=== PATIENT | female | born 1950 | race Caucasian/White ===

== ENCOUNTER 2017-06-18 22:57 | Inpatient (IN) ==
[2017-06-19] MEDS ORDERED: MORPHINE 2 MG/1 ML SYRINGE IV PRN (02:12)
[2017-06-19] MEDS ORDERED: DEXTROSE 50% 25 GM/50 ML VIAL IV PRN (02:12)
[2017-06-19] MEDS ORDERED: GLUCAGON 1 MG VIAL IM PRN (02:12)
[2017-06-19] MEDS ORDERED: traZODone 50 MG TABLET PO PRN (02:12)
[2017-06-19] MEDS ORDERED: ONDANSETRON 4 MG/2 ML VIAL IV PRN (02:12)
[2017-06-19] MEDS ORDERED: SODIUM CHLORIDE 0.9% 500 ML IV ONE (02:22)
[2017-06-19] MEDS ORDERED: ALBUTEROL/IPRATROPIUM 3 ML NEB RESP TX PRN (02:22)
[2017-06-19] MEDS ORDERED: SODIUM CHLORIDE 0.9% 1,000 ML IV SCH (02:30)
[2017-06-19] MEDS: ACETAMINOPHEN 325 MG TABLET PO PRN (03:21)
[2017-06-19] MEDS: methylPREDNISolone SOD SUC 40 MG/1 ML VIAL IV SCH ×4 (03:21→23:53)
[2017-06-19] MEDS: LEVOFLOXACIN INJ 750 MG in PREMIX 1 EACH IV SCH (04:41)
[2017-06-19] MEDS ORDERED: guaiFENesin 200 MG/10 ML UDCUP PO PRN (04:49)
[2017-06-19 05:07] LABS: Basophils % 0.1 % (0.0-0.8); Hematocrit 43.9 VOL% (35.7-47.0); Hemoglobin 14.9 GM/DL (12.0-16.0); Immature Granulocytes % 0.4 %; Immature Granulocytes Absolute 0.03 #; Lymphocytes # 0.5 10*3/uL (1.4-4.0); Lymphocytes % 7.2 % (21.3-54.2); Mean Corpuscular HGB Conc 33.9 GM/DL (32-36); Mean Corpuscular Hemoglobin 27 PG (27-34); Mean Corpuscular Volume 79.7 FL (87-102); Mean Platelet Volume 10.1 FL (9.6-12.0); Monocytes # 0.1 10*3/uL (0.11-0.8); Monocytes % 1.3 % (1.7-12.7); Neutrophils # 6.3 10*3/uL (1.4-7.4); Platelet Count 228 T/CUMM (130-400); Red Blood Count 5.51 MC/CUMM (3.8-5.5)
[2017-06-19 05:37] LABS: Alanine Aminotransferase 23 U/L (13-56); Albumin 3.2 G/DL (3.4-5.0); Alkaline Phosphatase 116 U/L (45-117); Aspartate Amino Transferase 20 U/L (0-37); Bilirubin,Total < 0.39 MG/DL (0.2-1.0); Blood Urea Nitrogen 8 MG/DL (7-18); Calcium 8.1 MG/DL (8.5-10.1); Glucose 387 MG/DL (74-106); Osmolality,Calculated 279.4 MOS/KG (273-304); Potassium 4.1 MMOL/L (3.5-5.1); Sodium 133 MMOL/L (136-145); Total Protein 6.5 G/DL (6.4-8.3)
[2017-06-19 05:38] LABS: Band Neutrophils 1 % (0-10); Lymphocytes 5 % (20-55); Platelet Estimate Normal; Segmented Neutrophils 93 % (50-85); Total Cells Counted 100
[2017-06-19] MEDS: ALBUTEROL/IPRATROPIUM 3 ML NEB RESP TX SCH ×3 (07:49→19:11)
[2017-06-19] MEDS ORDERED: PANTOPRAZOLE 40 MG TABLET PO SCH (09:00)
[2017-06-19] MEDS: DOCUSATE SODIUM 100 MG CAPSULE PO SCH ×2 (09:36→22:44)
[2017-06-19] MEDS: INSULIN REGULAR 100 UNIT/ML SUBCUT SCH ×4 (09:36→22:45)
[2017-06-19] MEDS: ENOXAPARIN 40 MG/0.4 ML SYRINGE SUBCUT SCH (09:36)
[2017-06-19] MEDS ORDERED: ALBUTEROL INH PRN (11:13)
[2017-06-19] MEDS: CITALOPRAM 20 MG TABLET PO SCH (13:47)
[2017-06-19] MEDS: risperiDONE 1 MG TABLET PO SCH ×2 (13:47→22:42)
[2017-06-19] MEDS: FLUTICASONE 50 MCG NASAL SPRAY 16 GM BOTTLE BOTH NARES SCH (13:47)
[2017-06-19] MEDS: GABAPENTIN 400 MG CAPSULE PO SCH ×3 (13:47→23:57)
[2017-06-19] MEDS: sitaGLIPtin 100 MG TABLET PO SCH (13:48)
[2017-06-19] MEDS: LORATADINE 10 MG TABLET PO SCH (13:48)
[2017-06-19] MEDS: HydrOXYzine PAMOATE 50 MG CAPSULE PO SCH ×2 (14:45→22:42)
[2017-06-19] MEDS ORDERED: NITROGLYCERIN SL 0.4 MG TABLET SL PRN (14:55)
[2017-06-19] MEDS: METOPROLOL SUCCINATE XL 100 MG TABLET PO SCH (15:40)
[2017-06-19] MEDS ORDERED: KETOROLAC 15 MG/1 ML VIAL IV ONE (17:23)
[2017-06-19] MEDS: LISINOPRIL 5 MG TABLET PO SCH (17:40)
[2017-06-19] MEDS: TEMAZEPAM 15 MG CAPSULE PO SCH (22:42)
[2017-06-19] MEDS: PANTOPRAZOLE 40 MG TABLET PO SCH (22:43)
[2017-06-19] MEDS: PRAVASTATIN 40 MG TABLET PO SCH (22:43)
[2017-06-19] MEDS: COLESTIPOL 1 GM TABLET PO SCH (22:43)
[2017-06-19] MEDS: TRIHEXYPHENIDYL 5 MG PO SCH (22:44)
[2017-06-20] MEDS: ALBUTEROL/IPRATROPIUM 3 ML NEB RESP TX SCH ×4 (02:45→19:16)
[2017-06-20 05:23] LABS: Basophils % 0.2 % (0.0-0.8); Immature Granulocytes % 0.6 %; Lymphocytes # 0.6 10*3/uL (1.4-4.0); Lymphocytes % 3.5 % (21.3-54.2); Mean Corpuscular HGB Conc 34.1 GM/DL (32-36); Mean Corpuscular Hemoglobin 27 PG (27-34); Mean Corpuscular Volume 78.9 FL (87-102); Monocytes # 1.3 10*3/uL (0.11-0.8); Monocytes % 7.1 % (1.7-12.7); Neutrophils # 15.8 10*3/uL (1.4-7.4); Neutrophils % 88.6 % (38.7-73.9); Platelet Count 230 T/CUMM (130-400); Red Blood Count 5.58 MC/CUMM (3.8-5.5); White Blood Count 17.8 T/CUMM (4-12)
[2017-06-20 05:48] LABS: Blood Urea Nitrogen 7 MG/DL (7-18); Calcium 8.8 MG/DL (8.5-10.1); Glucose 159 MG/DL (74-106); Osmolality,Calculated 268.2 MOS/KG (273-304); Potassium 3.9 MMOL/L (3.5-5.1); Sodium 134 MMOL/L (136-145); Troponin I Only < 0.015 NG/ML (0.00-0.045)
[2017-06-20 05:50] LABS: Risk Ratio 3.55; VLDL CHOLESTEROL 39.2 MG/DL
[2017-06-20 05:54] LABS: Band Neutrophils 4 % (0-10); Hypochromasia 1+; Lymphocytes 3 % (20-55); Segmented Neutrophils 88 % (50-85); Total Cells Counted 100
[2017-06-20 05:55] LABS: Microcytosis 1+; Platelet Estimate Normal
[2017-06-20] MEDS: risperiDONE 1 MG TABLET PO SCH ×2 (09:23→21:48)
[2017-06-20] MEDS: HydrOXYzine PAMOATE 50 MG CAPSULE PO SCH (09:24)
[2017-06-20] MEDS: sitaGLIPtin 100 MG TABLET PO SCH (09:24)
[2017-06-20] MEDS: COLESTIPOL 1 GM TABLET PO SCH ×2 (09:24→21:48)
[2017-06-20] MEDS: CITALOPRAM 20 MG TABLET PO SCH (09:24)
[2017-06-20] MEDS: DOCUSATE SODIUM 100 MG CAPSULE PO SCH ×2 (09:24→21:49)
[2017-06-20] MEDS: GABAPENTIN 400 MG CAPSULE PO SCH (09:25)
[2017-06-20] MEDS: LISINOPRIL 5 MG TABLET PO SCH (09:25)
[2017-06-20] MEDS: LORATADINE 10 MG TABLET PO SCH (09:25)
[2017-06-20] MEDS: INSULIN REGULAR 100 UNIT/ML SUBCUT SCH ×4 (09:25→21:49)
[2017-06-20] MEDS: methylPREDNISolone SOD SUC 40 MG/1 ML VIAL IV SCH (09:26)
[2017-06-20] MEDS: ENOXAPARIN 40 MG/0.4 ML SYRINGE SUBCUT SCH (09:28)
[2017-06-20] MEDS: FLUTICASONE 50 MCG NASAL SPRAY 16 GM BOTTLE BOTH NARES SCH (09:28)
[2017-06-20] MEDS: LEVOFLOXACIN INJ 750 MG in PREMIX 1 EACH IV SCH (09:32)
[2017-06-20] MEDS: METOPROLOL SUCCINATE XL 100 MG TABLET PO SCH (09:58)
[2017-06-20 10:28] LABS: ABG Base Excess 2.2 MMOL/L (-2.5-2.5); ABG Oxygen Saturation 84.3 % (95-100); ABG PCO2 32.9 MM HG (35-48); ABG PH 7.487 (7.35-7.45); ABG PO2 49.9 MM HG (80-95); ABG TCO2 21.2 MMOL/L (23-27)
[2017-06-20] MEDS: ACETAMINOPHEN 325 MG TABLET PO PRN (17:21)
[2017-06-20 17:36] LABS: Apearance,Urine CLEAR (Clear); Bilirubin,Urine Negative (Negative); Blood, Urine Moderate mg/dL (Negative); Glucose,Urine (UA) Negative (Negative); Ketones,Urine Negative (Negative); Nitrite,Urine Negative (Negative); Protein,Urine 30 MG/DL; RBC,Urine 1 /HPF (0-4); Squamous Epithelial Cell,Urine Occasional /HPF (0-10); Urine Color Straw (Yellow); Urine Specific Gravity 1.008 (1.001-1.035); Urine Urobilinogen < 2.0 EU/DL (0.2-1.0); WBC,Urine <1 /HPF (0-6)
[2017-06-20] MEDS ORDERED: HydrOXYzine PAMOATE 25 MG CAPSULE PO SCH (21:00)
[2017-06-20] MEDS: TEMAZEPAM 15 MG CAPSULE PO SCH (21:48)
[2017-06-20] MEDS: PRAVASTATIN 40 MG TABLET PO SCH (21:48)
[2017-06-20] MEDS: TRIHEXYPHENIDYL 5 MG PO SCH (21:48)
[2017-06-20] MEDS: PANTOPRAZOLE 40 MG TABLET PO SCH (21:49)
[2017-06-20] MEDS: NICOTINE 21 MG/24 HR PATCH TRANSDERM PRN (21:57)
[2017-06-21] MEDS: ALBUTEROL/IPRATROPIUM 3 ML NEB RESP TX SCH ×4 (00:21→20:30)
[2017-06-21] MEDS ORDERED: ALBUTEROL NEB SOLN 5 MG/ML 20 ML/BOTTLE CONT NEB ONE (01:19)
[2017-06-21] MEDS ORDERED: SODIUM CHLORIDE 0.9% 500 ML IV ONE (01:20)
[2017-06-21] MEDS: ACETAMINOPHEN 325 MG TABLET PO PRN (04:34)
[2017-06-21] MEDS ORDERED: SUCCINYLCHOLINE 200 MG/10 ML VIAL ONE (06:10)
[2017-06-21] MEDS ORDERED: PROPOFOL 1,000 MG/100 ML BOTTLE IV ONE (06:10)
[2017-06-21] MEDS ORDERED: ETOMIDATE 20 MG/10 ML VIAL IV ONE ×2 (06:10→06:23)
[2017-06-21] MEDS: FENTANYL IV SCH ×2 (06:54→13:56)
[2017-06-21] MEDS: SODIUM CHLORIDE 0.45% IV SCH ×2 (06:54→13:56)
[2017-06-21] MEDS ORDERED: PROPOFOL 1,000 MG/100 ML BOTTLE IV SCH (07:00)
[2017-06-21 07:10] LABS: Basophils % 0.3 % (0.0-0.8); Hematocrit 45.2 VOL% (35.7-47.0); Hemoglobin 15.6 GM/DL (12.0-16.0); Immature Granulocytes % 0.7 %; Immature Granulocytes Absolute 0.06 #; Mean Corpuscular HGB Conc 34.5 GM/DL (32-36); Mean Corpuscular Hemoglobin 27 PG (27-34); Mean Corpuscular Volume 78.6 FL (87-102); Mean Platelet Volume 10.3 FL (9.6-12.0); Monocytes % 11.5 % (1.7-12.7); Neutrophils # 6.8 10*3/uL (1.4-7.4); Neutrophils % 76.5 % (38.7-73.9); Platelet Count 184 T/CUMM (130-400); Red Blood Count 5.75 MC/CUMM (3.8-5.5); Red Cell Distribution Width 13.1 % (9.3-17.3); White Blood Count 8.9 T/CUMM (4-12)
[2017-06-21] MEDS ORDERED: SUCCINYLCHOLINE 200 MG/10 ML VIAL IV ONE (07:12)
[2017-06-21 07:29] LABS: Apearance,Urine CLEAR (Clear); Bacteria,Urine Occasional /HPF (Few); Bilirubin,Urine Negative (Negative); Blood, Urine Moderate mg/dL (Negative); Glucose,Urine (UA) Negative (Negative); Ketones,Urine 20 mg/dL (Negative); Nitrite,Urine Negative (Negative); Protein,Urine 100 MG/DL; RBC,Urine 1 /HPF (0-4); Squamous Epithelial Cell,Urine Occasional /HPF (0-10); Urine Color Straw (Yellow); Urine Specific Gravity 1.006 (1.001-1.035); Urine Urobilinogen < 2.0 EU/DL (0.2-1.0); WBC,Urine <1 /HPF (0-6)
[2017-06-21 07:29] LABS: Lactic Acid 1.8 MMOL/L (0.4-2.0)
[2017-06-21 07:32] LABS: Hypochromasia 1+
[2017-06-21 07:33] LABS: Microcytosis Slight; Platelet Estimate Adequate; Tear Drop Cells Few
[2017-06-21 07:43] LABS: Albumin 2.9 G/DL (3.4-5.0); Bilirubin,Total 0.6 MG/DL (0.2-1.0); Calcium 8.2 MG/DL (8.5-10.1); Magnesium 1.7 MG/DL (1.8-2.4); Osmolality,Calculated 268.5 MOS/KG (273-304); Potassium 3.6 MMOL/L (3.5-5.1); Total Protein 6.5 G/DL (6.4-8.3); Troponin I Only 0.031 NG/ML (0.00-0.045)
[2017-06-21 07:43] LABS: ABG Base Excess 0.3 MMOL/L (-2.5-2.5); ABG HCO3 24.7 MMOL/L (20-26); ABG Oxygen Saturation 98.2 % (95-100); ABG PCO2 46.2 MM HG (35-48); ABG PH 7.363 (7.35-7.45); ABG TCO2 22.6 MMOL/L (23-27); Allen Test Positive; Pt O2 Delivery Device Ventilator
[2017-06-21] MEDS ORDERED: NOREPINEPHRINE 4 MG/4 ML VIAL IV ONE (07:49)
[2017-06-21] MEDS: NOREPINEPHRINE 8 MG in SODIUM CHLORIDE 0.9% 242 ML IV SCH (08:00)
[2017-06-21] MEDS: sitaGLIPtin 100 MG TABLET PO SCH (08:37)
[2017-06-21] MEDS: CLINDAMYCIN INJ 600 MG in PREMIX 1 EACH IV SCH ×2 (08:53→16:07)
[2017-06-21] MEDS: DEXMEDETOMIDINE 200 MCG in SODIUM CHLORIDE 0.9% 48 ML IV SCH ×3 (08:55→20:10)
[2017-06-21] MEDS: methylPREDNISolone SOD SUC 40 MG/1 ML VIAL IV SCH ×3 (08:58→22:25)
[2017-06-21] MEDS: COLESTIPOL 1 GM TABLET PO SCH ×2 (08:59→22:26)
[2017-06-21] MEDS: HALOPERIDOL 5 MG/ML AMP IV SCH ×2 (08:59→22:24)
[2017-06-21] MEDS: LORATADINE 10 MG TABLET PO SCH (08:59)
[2017-06-21] MEDS: INSULIN REGULAR 100 UNIT/ML SUBCUT SCH ×4 (08:59→22:26)
[2017-06-21] MEDS: DOCUSATE SODIUM 100 MG CAPSULE PO SCH ×2 (08:59→22:25)
[2017-06-21] MEDS ORDERED: GABAPENTIN 100 MG CAPSULE PO SCH (09:00)
[2017-06-21] MEDS: ENOXAPARIN 40 MG/0.4 ML SYRINGE SUBCUT SCH (09:05)
[2017-06-21] MEDS: LEVOFLOXACIN INJ 750 MG in PREMIX 1 EACH IV SCH (09:26)
[2017-06-21 09:37] LABS: ABG Base Excess 0.3 MMOL/L (-2.5-2.5); ABG HCO3 25.1 MMOL/L (20-26); ABG Oxygen Saturation 95.5 % (95-100); ABG PH 7.404 (7.35-7.45); ABG PO2 86.3 MM HG (80-95); ABG TCO2 26.3 MMOL/L (23-27); Allen Test Positive; Pt O2 Delivery Device Ventilator
[2017-06-21] MEDS: METOPROLOL SUCCINATE XL 100 MG TABLET PO SCH (09:37)
[2017-06-21] MEDS ORDERED: MAGNESIUM SULF RIDER 2 GM in PREMIX 1 EACH IV PRN (09:54)
[2017-06-21] MEDS ORDERED: MAGNESIUM SULF RIDER 4 GM in PREMIX 1 EACH IV PRN (09:54)
[2017-06-21] MEDS: METOPROLOL TARTRATE 50 MG TABLET NG SCH ×2 (11:02→22:26)
[2017-06-21] MEDS: PRAVASTATIN 40 MG TABLET PO SCH (22:25)
[2017-06-21] MEDS: PANTOPRAZOLE 40 MG TABLET PO SCH (22:26)
[2017-06-22] MEDS: FENTANYL IV SCH ×2 (00:12→10:51)
[2017-06-22] MEDS: SODIUM CHLORIDE 0.45% IV SCH ×2 (00:12→10:51)
[2017-06-22] MEDS: DEXMEDETOMIDINE 200 MCG in SODIUM CHLORIDE 0.9% 48 ML IV SCH ×5 (00:16→21:47)
[2017-06-22] MEDS: CLINDAMYCIN INJ 600 MG in PREMIX 1 EACH IV SCH ×4 (00:29→23:39)
[2017-06-22] MEDS: ALBUTEROL/IPRATROPIUM 3 ML NEB RESP TX SCH ×4 (01:57→19:49)
[2017-06-22 03:39] LABS: ABG Base Excess 3.1 MMOL/L (-2.5-2.5); ABG HCO3 26.7 MMOL/L (20-26); ABG Oxygen Saturation 94.5 % (95-100); ABG PCO2 37.8 MM HG (35-48); ABG PH 7.467 (7.35-7.45); ABG PO2 69.7 MM HG (80-95); ABG TCO2 27.9 MMOL/L (23-27)
[2017-06-22 06:03] LABS: Calcium 8.4 MG/DL (8.5-10.1); Magnesium 2.5 MG/DL (1.8-2.4); Osmolality,Calculated 270.5 MOS/KG (273-304)
[2017-06-22] MEDS: methylPREDNISolone SOD SUC 40 MG/1 ML VIAL IV SCH ×3 (06:28→17:56)
[2017-06-22] MEDS: COLESTIPOL 1 GM TABLET PO SCH ×2 (09:20→21:40)
[2017-06-22] MEDS: LEVOFLOXACIN INJ 750 MG in PREMIX 1 EACH IV SCH (09:32)
[2017-06-22] MEDS: HALOPERIDOL 5 MG/ML AMP IV SCH ×2 (09:32→21:40)
[2017-06-22] MEDS: INSULIN REGULAR 100 UNIT/ML SUBCUT SCH ×4 (09:32→23:39)
[2017-06-22] MEDS: ENOXAPARIN 40 MG/0.4 ML SYRINGE SUBCUT SCH (09:33)
[2017-06-22] MEDS: DOCUSATE SODIUM 100 MG/10 ML UDCUP PO SCH ×2 (09:33→21:40)
[2017-06-22] MEDS: LORATADINE 10 MG TABLET PO SCH (09:33)
[2017-06-22] MEDS: ESTRADIOL 0.1 MG PATCH (1X WK) TRANSDERM SCH (09:36)
[2017-06-22] MEDS: METOPROLOL TARTRATE 50 MG TABLET NG SCH ×2 (10:48→21:40)
[2017-06-22] MEDS: sitaGLIPtin 100 MG TABLET PO SCH (10:53)
[2017-06-22] MEDS: NOREPINEPHRINE 8 MG in SODIUM CHLORIDE 0.9% 242 ML IV SCH (10:54)
[2017-06-22] MEDS: DOCUSATE SODIUM 100 MG CAPSULE PO SCH (13:22)
[2017-06-22] MEDS ORDERED: cloNIDine 0.3 MG/24 HR PATCH TRANSDERM SCH (15:00)
[2017-06-22] MEDS: PRAVASTATIN 40 MG TABLET PO SCH (21:40)
[2017-06-22] MEDS: INSULIN GLARGINE 100 UNIT/ML SUBCUT SCH (21:40)
[2017-06-22] MEDS: PANTOPRAZOLE 40 MG TABLET PO SCH (21:40)
[2017-06-23] MEDS: ALBUTEROL/IPRATROPIUM 3 ML NEB RESP TX SCH ×4 (00:41→18:08)
[2017-06-23] MEDS: FENTANYL IV SCH ×2 (01:30→08:35)
[2017-06-23] MEDS: SODIUM CHLORIDE 0.45% IV SCH ×2 (01:30→08:35)
[2017-06-23] MEDS: DEXMEDETOMIDINE 200 MCG in SODIUM CHLORIDE 0.9% 48 ML IV SCH ×3 (02:39→14:11)
[2017-06-23 02:41] LABS: Allen Test Positive; Pt O2 Delivery Device Ventilator
[2017-06-23 02:44] LABS: ABG Base Excess 5.4 MMOL/L (-2.5-2.5); ABG HCO3 29.2 MMOL/L (20-26); ABG Oxygen Saturation 97.3 % (95-100); ABG PCO2 50.2 MM HG (35-48); ABG PH 7.407 (7.35-7.45); ABG TCO2 26.7 MMOL/L (23-27)
[2017-06-23 04:31] LABS: Basophils % 0.1 % (0.0-0.8); Eosinophils % 0.1 % (0.00-10.9); Hematocrit 45.3 VOL% (35.7-47.0); Hemoglobin 15.2 GM/DL (12.0-16.0); Immature Granulocytes % 0.6 %; Immature Granulocytes Absolute 0.06 #; Lymphocytes # 0.9 10*3/uL (1.4-4.0); Lymphocytes % 8.9 % (21.3-54.2); Mean Corpuscular HGB Conc 33.6 GM/DL (32-36); Mean Corpuscular Hemoglobin 27 PG (27-34); Mean Corpuscular Volume 79.3 FL (87-102); Mean Platelet Volume 10.6 FL (9.6-12.0); Monocytes # 1.3 10*3/uL (0.11-0.8); Monocytes % 13.3 % (1.7-12.7); Neutrophils # 7.8 10*3/uL (1.4-7.4); Platelet Count 217 T/CUMM (130-400); Red Blood Count 5.71 MC/CUMM (3.8-5.5); Red Cell Distribution Width 13.1 % (9.3-17.3); White Blood Count 10.1 T/CUMM (4-12)
[2017-06-23 05:02] LABS: Calcium 8.4 MG/DL (8.5-10.1); Osmolality,Calculated 274.1 MOS/KG (273-304); Potassium 3.7 MMOL/L (3.5-5.1)
[2017-06-23 05:29] LABS: Phosphorous 3.3 MG/DL (2.5-4.9); Prealbumin 13.6 MG/DL (20-40)
[2017-06-23] MEDS: methylPREDNISolone SOD SUC 40 MG/1 ML VIAL IV SCH ×2 (06:15→17:03)
[2017-06-23] MEDS: INSULIN REGULAR 100 UNIT/ML SUBCUT SCH ×3 (06:16→18:28)
[2017-06-23] MEDS: CLINDAMYCIN INJ 600 MG in PREMIX 1 EACH IV SCH ×2 (08:08→17:03)
[2017-06-23 08:29] LABS: ABG HCO3 29.7 MMOL/L (20-26); ABG Oxygen Saturation 93.2 % (95-100); ABG PCO2 47.5 MM HG (35-48); ABG PH 7.431 (7.35-7.45); ABG PO2 70.5 MM HG (80-95); ABG TCO2 26.6 MMOL/L (23-27)
[2017-06-23] MEDS: DOCUSATE SODIUM 100 MG/10 ML UDCUP PO SCH ×2 (10:11→21:42)
[2017-06-23] MEDS: LORATADINE 10 MG TABLET PO SCH (10:11)
[2017-06-23] MEDS: sitaGLIPtin 100 MG TABLET PO SCH (10:12)
[2017-06-23] MEDS: COLESTIPOL 1 GM TABLET PO SCH ×2 (10:12→21:44)
[2017-06-23] MEDS: METOPROLOL TARTRATE 50 MG TABLET NG SCH ×2 (10:12→21:43)
[2017-06-23] MEDS: HALOPERIDOL 5 MG/ML AMP IV SCH ×2 (10:12→21:44)
[2017-06-23] MEDS: LEVOFLOXACIN INJ 750 MG in PREMIX 1 EACH IV SCH (10:17)
[2017-06-23] MEDS: ENOXAPARIN 40 MG/0.4 ML SYRINGE SUBCUT SCH (10:17)
[2017-06-23] MEDS: risperiDONE 1 MG TABLET PER TUBE SCH ×2 (10:37→21:43)
[2017-06-23] MEDS: CITALOPRAM 20 MG TABLET PER TUBE SCH (10:37)
[2017-06-23] MEDS: TRIHEXYPHENIDYL 5 MG PO SCH (18:10)
[2017-06-23] MEDS: PRAVASTATIN 40 MG TABLET PO SCH (21:44)
[2017-06-23] MEDS: PANTOPRAZOLE 40 MG TABLET PO SCH (21:44)
[2017-06-23] MEDS: NICOTINE 21 MG/24 HR PATCH TRANSDERM PRN (21:45)
[2017-06-23] MEDS: INSULIN GLARGINE 100 UNIT/ML SUBCUT SCH (21:45)
[2017-06-23] MEDS: fentaNYL INJ 1,250 MCG in SODIUM CHLORIDE 0.45% 225 ML IV SCH (21:45)
[2017-06-23] MEDS: ESTRADIOL 0.1 MG PATCH (1X WK) TRANSDERM SCH (21:46)
[2017-06-24] MEDS: DEXMEDETOMIDINE 200 MCG in SODIUM CHLORIDE 0.9% 48 ML IV SCH ×3 (00:02→21:44)
[2017-06-24] MEDS: INSULIN REGULAR 100 UNIT/ML SUBCUT SCH ×4 (00:20→18:00)
[2017-06-24] MEDS: CLINDAMYCIN INJ 600 MG in PREMIX 1 EACH IV SCH ×3 (00:20→16:11)
[2017-06-24] MEDS: ALBUTEROL/IPRATROPIUM 3 ML NEB RESP TX SCH ×4 (01:22→19:18)
[2017-06-24 04:02] LABS: ABG Base Excess -0.9 MMOL/L (-2.5-2.5); ABG HCO3 23.6 MMOL/L (20-26); ABG Oxygen Saturation 95.2 % (95-100); ABG PCO2 46.2 MM HG (35-48); ABG PH 7.346 (7.35-7.45); ABG TCO2 21.8 MMOL/L (23-27)
[2017-06-24 05:52] LABS: Basophils % 0.1 % (0.0-0.8); Hematocrit 44.5 VOL% (35.7-47.0); Hemoglobin 14.6 GM/DL (12.0-16.0); Immature Granulocytes % 0.7 %; Immature Granulocytes Absolute 0.08 #; Lymphocytes # 0.9 10*3/uL (1.4-4.0); Lymphocytes % 7.3 % (21.3-54.2); Mean Corpuscular HGB Conc 32.8 GM/DL (32-36); Mean Corpuscular Hemoglobin 26 PG (27-34); Mean Platelet Volume 10.4 FL (9.6-12.0); Monocytes # 1.6 10*3/uL (0.11-0.8); Monocytes % 13.5 % (1.7-12.7); Neutrophils # 9.5 10*3/uL (1.4-7.4); Neutrophils % 78.4 % (38.7-73.9); Platelet Count 279 T/CUMM (130-400); Red Blood Count 5.56 MC/CUMM (3.8-5.5); Red Cell Distribution Width 13.3 % (9.3-17.3)
[2017-06-24 06:22] LABS: Calcium 8.5 MG/DL (8.5-10.1); Magnesium 2.1 MG/DL (1.8-2.4); Osmolality,Calculated 274.4 MOS/KG (273-304); Potassium 4.1 MMOL/L (3.5-5.1)
[2017-06-24] MEDS: methylPREDNISolone SOD SUC 40 MG/1 ML VIAL IV SCH ×2 (06:28→17:08)
[2017-06-24] MEDS: fentaNYL INJ 1,250 MCG in SODIUM CHLORIDE 0.45% 225 ML IV SCH ×2 (07:26→13:01)
[2017-06-24] MEDS: sitaGLIPtin 100 MG TABLET PO SCH (08:53)
[2017-06-24] MEDS: COLESTIPOL 1 GM TABLET PO SCH ×2 (08:53→21:04)
[2017-06-24] MEDS: CITALOPRAM 20 MG TABLET PER TUBE SCH (08:53)
[2017-06-24] MEDS: DOCUSATE SODIUM 100 MG/10 ML UDCUP PO SCH ×2 (08:53→21:04)
[2017-06-24] MEDS: HALOPERIDOL 5 MG/ML AMP IV SCH ×2 (08:54→21:05)
[2017-06-24] MEDS: risperiDONE 1 MG TABLET PER TUBE SCH ×2 (08:56→21:04)
[2017-06-24] MEDS: METOPROLOL TARTRATE 50 MG TABLET NG SCH ×2 (08:56→21:04)
[2017-06-24] MEDS: LEVOFLOXACIN INJ 750 MG in PREMIX 1 EACH IV SCH (08:56)
[2017-06-24] MEDS: ENOXAPARIN 40 MG/0.4 ML SYRINGE SUBCUT SCH (09:00)
[2017-06-24] MEDS: LORATADINE 10 MG TABLET PO SCH (09:00)
[2017-06-24] MEDS: TRIHEXYPHENIDYL 5 MG PO SCH (17:48)
[2017-06-24] MEDS: PANTOPRAZOLE 40 MG TABLET PO SCH (21:04)
[2017-06-24] MEDS: PRAVASTATIN 40 MG TABLET PO SCH (21:04)
[2017-06-24] MEDS: INSULIN GLARGINE 100 UNIT/ML SUBCUT SCH (21:08)
[2017-06-25] MEDS: ALBUTEROL/IPRATROPIUM 3 ML NEB RESP TX SCH ×4 (00:15→19:23)
[2017-06-25] MEDS: CLINDAMYCIN INJ 600 MG in PREMIX 1 EACH IV SCH ×3 (00:29→16:29)
[2017-06-25] MEDS: INSULIN REGULAR 100 UNIT/ML SUBCUT SCH ×5 (00:29→23:59)
[2017-06-25] MEDS: fentaNYL INJ 1,250 MCG in SODIUM CHLORIDE 0.45% 225 ML IV SCH ×3 (02:54→16:28)
[2017-06-25 03:12] LABS: ABG Base Excess -2.4 MMOL/L (-2.5-2.5); ABG HCO3 22.3 MMOL/L (20-26); ABG PCO2 43.2 MM HG (35-48); ABG PH 7.343 (7.35-7.45); ABG PO2 80.6 MM HG (80-95); ABG TCO2 20.3 MMOL/L (23-27); Allen Test Positive; Pt O2 Delivery Device Ventilator
[2017-06-25] MEDS: methylPREDNISolone SOD SUC 40 MG/1 ML VIAL IV SCH ×2 (06:43→16:34)
[2017-06-25 07:01] LABS: Calcium 8.7 MG/DL (8.5-10.1); Osmolality,Calculated 278.1 MOS/KG (273-304); Potassium 4.2 MMOL/L (3.5-5.1)
[2017-06-25] MEDS: DOCUSATE SODIUM 100 MG/10 ML UDCUP PO SCH ×2 (09:32→21:14)
[2017-06-25] MEDS: LORATADINE 10 MG TABLET PO SCH (09:32)
[2017-06-25] MEDS: METOPROLOL TARTRATE 50 MG TABLET NG SCH ×2 (09:32→21:14)
[2017-06-25] MEDS: ENOXAPARIN 40 MG/0.4 ML SYRINGE SUBCUT SCH (09:33)
[2017-06-25] MEDS: sitaGLIPtin 100 MG TABLET PO SCH (09:33)
[2017-06-25] MEDS: CITALOPRAM 20 MG TABLET PER TUBE SCH (09:33)
[2017-06-25] MEDS: risperiDONE 1 MG TABLET PER TUBE SCH ×2 (09:33→21:14)
[2017-06-25] MEDS: COLESTIPOL 1 GM TABLET PO SCH ×3 (09:33→22:27)
[2017-06-25] MEDS: HALOPERIDOL 5 MG/ML AMP IV SCH ×2 (09:34→21:14)
[2017-06-25] MEDS: MULTIVITAMIN LIQUID (CENTRUM) 60 ML BOTTLE PER TUBE SCH (09:34)
[2017-06-25] MEDS: LEVOFLOXACIN INJ 750 MG in PREMIX 1 EACH IV SCH (09:39)
[2017-06-25] MEDS: DEXMEDETOMIDINE 200 MCG in SODIUM CHLORIDE 0.9% 48 ML IV SCH ×2 (10:49→22:29)
[2017-06-25] MEDS: TRIHEXYPHENIDYL 5 MG PO SCH (18:23)
[2017-06-25] MEDS: PRAVASTATIN 40 MG TABLET PO SCH (21:14)
[2017-06-25] MEDS: PANTOPRAZOLE 40 MG TABLET PO SCH (21:14)
[2017-06-25] MEDS: INSULIN GLARGINE 100 UNIT/ML SUBCUT SCH (21:15)
[2017-06-26] MEDS: fentaNYL INJ 1,250 MCG in SODIUM CHLORIDE 0.45% 225 ML IV SCH ×2 (01:29→15:10)
[2017-06-26] MEDS: ALBUTEROL/IPRATROPIUM 3 ML NEB RESP TX SCH ×4 (01:36→19:50)
[2017-06-26 03:58] LABS: ABG Base Excess 1.7 MMOL/L (-2.5-2.5); ABG HCO3 26.8 MMOL/L (20-26); ABG Oxygen Saturation 92.8 % (95-100); ABG PCO2 44.1 MM HG (35-48); ABG PH 7.402 (7.35-7.45); ABG PO2 64.7 MM HG (80-95); ABG TCO2 28.2 MMOL/L (23-27)
[2017-06-26 04:59] LABS: Basophils # 0.1 10*3/uL (0.0-0.2); Basophils % 0.3 % (0.0-0.8); Hemoglobin 14.2 GM/DL (12.0-16.0); Immature Granulocytes % 1.3 %; Immature Granulocytes Absolute 0.21 #; Lymphocytes # 0.7 10*3/uL (1.4-4.0); Lymphocytes % 4.4 % (21.3-54.2); Mean Corpuscular HGB Conc 33.8 GM/DL (32-36); Mean Corpuscular Hemoglobin 27 PG (27-34); Mean Corpuscular Volume 79.2 FL (87-102); Mean Platelet Volume 10.3 FL (9.6-12.0); Monocytes # 1.9 10*3/uL (0.11-0.8); Monocytes % 11.4 % (1.7-12.7); Neutrophils # 13.8 10*3/uL (1.4-7.4); Neutrophils % 82.6 % (38.7-73.9); Platelet Count 341 T/CUMM (130-400); Red Cell Distribution Width 13.2 % (9.3-17.3); White Blood Count 16.6 T/CUMM (4-12)
[2017-06-26] MEDS: INSULIN REGULAR 100 UNIT/ML SUBCUT SCH ×4 (05:15→23:39)
[2017-06-26] MEDS: methylPREDNISolone SOD SUC 40 MG/1 ML VIAL IV SCH (05:15)
[2017-06-26 05:38] LABS: Prealbumin 15.1 MG/DL (20-40)
[2017-06-26 05:46] LABS: Giant Platelets Few; Hypochromasia 1+; Lymphocytes 6 % (20-55); Microcytosis Slight; Platelet Estimate Adequate; Segmented Neutrophils 87 % (50-85); Total Cells Counted 100
[2017-06-26 06:06] LABS: Calcium 8.3 MG/DL (8.5-10.1); Magnesium 2.1 MG/DL (1.8-2.4); Osmolality,Calculated 278.4 MOS/KG (273-304); Potassium 4.1 MMOL/L (3.5-5.1)
[2017-06-26 07:20] LABS: ABG Base Excess 1.8 MMOL/L (-2.5-2.5); ABG HCO3 25.8 MMOL/L (20-26); ABG Oxygen Saturation 91.3 % (95-100); ABG PCO2 42.2 MM HG (35-48); ABG PH 7.409 (7.35-7.45); ABG PO2 70.1 MM HG (80-95); ABG TCO2 22.7 MMOL/L (23-27); Allen Test Positive; Pt O2 Delivery Device Ventilator
[2017-06-26] MEDS ORDERED: methylPREDNISolone SOD SUC 125 MG/2 ML VIAL ONE (08:16)
[2017-06-26] MEDS ORDERED: methylPREDNISolone SOD SUC 125 MG/2 ML VIAL IV ONE (08:19)
[2017-06-26] MEDS ORDERED: hydrALAZINE 20 MG/1 ML VIAL IV ONE (08:21)
[2017-06-26] MEDS ORDERED: MIDAZOLAM 10 MG/2 ML VIAL ONE (08:23)
[2017-06-26] MEDS ORDERED: hydrALAZINE 20 MG/1 ML VIAL ONE (08:23)
[2017-06-26] MEDS ORDERED: LIDOCAINE 2% 20 ML VIAL RESP TX ONE (08:28)
[2017-06-26] MEDS ORDERED: MIDAZOLAM 2 MG/2 ML VIAL IV ONE (08:28)
[2017-06-26] MEDS ORDERED: LIDOCAINE 1% 20 ML VIAL MISC INJ ONE (08:28)
[2017-06-26] MEDS ORDERED: RACEPINEPHRINE 0.5 ML NEB RESP TX ONE (08:30)
[2017-06-26] MEDS ORDERED: PROPOFOL 1,000 MG/100 ML BOTTLE IV ONE (08:37)
[2017-06-26] MEDS: LORATADINE 10 MG TABLET PO SCH (09:30)
[2017-06-26] MEDS: CLINDAMYCIN INJ 600 MG in PREMIX 1 EACH IV SCH ×4 (09:30→23:25)
[2017-06-26] MEDS: sitaGLIPtin 100 MG TABLET PO SCH (09:30)
[2017-06-26] MEDS: HALOPERIDOL 5 MG/ML AMP IV SCH ×2 (09:30→21:11)
[2017-06-26] MEDS: MULTIVITAMIN LIQUID (CENTRUM) 60 ML BOTTLE PER TUBE SCH (09:30)
[2017-06-26] MEDS: CITALOPRAM 20 MG TABLET PER TUBE SCH (09:30)
[2017-06-26] MEDS: risperiDONE 1 MG TABLET PER TUBE SCH ×2 (09:30→21:07)
[2017-06-26] MEDS: LEVOFLOXACIN INJ 750 MG in PREMIX 1 EACH IV SCH (09:30)
[2017-06-26] MEDS: ENOXAPARIN 40 MG/0.4 ML SYRINGE SUBCUT SCH (09:30)
[2017-06-26] MEDS: PROPOFOL 1,000 MG/100 ML BOTTLE IV SCH ×4 (09:30→23:23)
[2017-06-26] MEDS: DEXMEDETOMIDINE 200 MCG in SODIUM CHLORIDE 0.9% 48 ML IV SCH (10:35)
[2017-06-26] MEDS: DOCUSATE SODIUM 100 MG/10 ML UDCUP PO SCH ×2 (10:36→21:06)
[2017-06-26] MEDS: COLESTIPOL 1 GM TABLET PO SCH (10:36)
[2017-06-26] MEDS: METOPROLOL TARTRATE 50 MG TABLET NG SCH ×2 (10:37→21:10)
[2017-06-26 11:01] LABS: ABG Base Excess 1.9 MMOL/L (-2.5-2.5); ABG HCO3 25.9 MMOL/L (20-26); ABG Oxygen Saturation 90.5 % (95-100); ABG PCO2 40.1 MM HG (35-48); ABG PH 7.426 (7.35-7.45); ABG PO2 66.4 MM HG (80-95); ABG TCO2 22.7 MMOL/L (23-27); Allen Test Positive; Pt O2 Delivery Device Ventilator
[2017-06-26] MEDS ORDERED: INSULIN GLARGINE 100 UNIT/ML SUBCUT SCH (13:00)
[2017-06-26] MEDS ORDERED: INSULIN REGULAR 100 UNIT/ML IV ONE (16:31)
[2017-06-26] MEDS: methylPREDNISolone SOD SUC 125 MG/2 ML VIAL IV SCH ×2 (16:42→23:26)
[2017-06-26] MEDS: TRIHEXYPHENIDYL 5 MG PO SCH (17:02)
[2017-06-26] MEDS: INSULIN GLARGINE 100 UNIT/ML SUBCUT SCH (21:07)
[2017-06-26] MEDS: PRAVASTATIN 40 MG TABLET PO SCH (21:09)
[2017-06-26] MEDS: PANTOPRAZOLE 40 MG TABLET PO SCH (21:09)
[2017-06-27] MEDS: ALBUTEROL/IPRATROPIUM 3 ML NEB RESP TX SCH ×4 (00:10→19:26)
[2017-06-27 03:34] LABS: ABG Base Excess 2.8 MMOL/L (-2.5-2.5); ABG HCO3 26.7 MMOL/L (20-26); ABG Oxygen Saturation 90.7 % (95-100); ABG PCO2 42.5 MM HG (35-48); ABG PH 7.421 (7.35-7.45); ABG PO2 67.7 MM HG (80-95); ABG TCO2 23.7 MMOL/L (23-27)
[2017-06-27] MEDS: PROPOFOL 1,000 MG/100 ML BOTTLE IV SCH ×5 (03:49→23:07)
[2017-06-27 05:01] LABS: Basophils # 0.1 10*3/uL (0.0-0.2); Basophils % 0.3 % (0.0-0.8); Hematocrit 42.8 VOL% (35.7-47.0); Hemoglobin 14.1 GM/DL (12.0-16.0); Immature Granulocytes % 3.2 %; Immature Granulocytes Absolute 0.69 #; Lymphocytes # 0.6 10*3/uL (1.4-4.0); Lymphocytes % 2.6 % (21.3-54.2); Mean Corpuscular HGB Conc 32.9 GM/DL (32-36); Mean Corpuscular Hemoglobin 26 PG (27-34); Mean Corpuscular Volume 79.9 FL (87-102); Mean Platelet Volume 10.3 FL (9.6-12.0); Monocytes # 1.7 10*3/uL (0.11-0.8); Neutrophils # 18.7 10*3/uL (1.4-7.4); Neutrophils % 85.9 % (38.7-73.9); Platelet Count 409 T/CUMM (130-400); Red Blood Count 5.36 MC/CUMM (3.8-5.5); Red Cell Distribution Width 13.2 % (9.3-17.3); White Blood Count 21.8 T/CUMM (4-12)
[2017-06-27 05:32] LABS: Lymphocytes 3 % (20-55); Segmented Neutrophils 90 % (50-85); Total Cells Counted 100
[2017-06-27 05:33] LABS: Giant Platelets Few; Hypochromasia 1+; Microcytosis Slight; Platelet Estimate Adequate
[2017-06-27 05:34] LABS: Calcium 8.5 MG/DL (8.5-10.1); Magnesium 2.3 MG/DL (1.8-2.4); Potassium 4.9 MMOL/L (3.5-5.1)
[2017-06-27] MEDS: methylPREDNISolone SOD SUC 125 MG/2 ML VIAL IV SCH ×5 (05:48→23:04)
[2017-06-27] MEDS: INSULIN REGULAR 100 UNIT/ML SUBCUT SCH ×4 (05:48→23:57)
[2017-06-27] MEDS: fentaNYL INJ 1,250 MCG in SODIUM CHLORIDE 0.45% 225 ML IV SCH ×2 (05:50→15:51)
[2017-06-27] MEDS ORDERED: INSULIN GLARGINE 100 UNIT/ML SUBCUT SCH ×2 (05:54→21:00)
[2017-06-27] MEDS: CLINDAMYCIN INJ 600 MG in PREMIX 1 EACH IV SCH ×3 (09:00→23:05)
[2017-06-27] MEDS: sitaGLIPtin 100 MG TABLET PO SCH (09:30)
[2017-06-27] MEDS: risperiDONE 1 MG TABLET PER TUBE SCH ×2 (09:30→20:43)
[2017-06-27] MEDS: LORATADINE 10 MG TABLET PO SCH (09:30)
[2017-06-27] MEDS: CITALOPRAM 20 MG TABLET PER TUBE SCH (09:30)
[2017-06-27] MEDS: LEVOFLOXACIN INJ 750 MG in PREMIX 1 EACH IV SCH (09:30)
[2017-06-27] MEDS: DOCUSATE SODIUM 100 MG/10 ML UDCUP PO SCH ×2 (09:30→20:42)
[2017-06-27] MEDS: MULTIVITAMIN LIQUID (CENTRUM) 60 ML BOTTLE PER TUBE SCH (09:30)
[2017-06-27] MEDS: HALOPERIDOL 5 MG/ML AMP IV SCH ×2 (09:33→20:42)
[2017-06-27] MEDS: METOPROLOL TARTRATE 50 MG TABLET NG SCH ×3 (09:53→20:45)
[2017-06-27] MEDS: TRIHEXYPHENIDYL 5 MG PO SCH (17:15)
[2017-06-27] MEDS: PRAVASTATIN 40 MG TABLET PO SCH (20:44)
[2017-06-27] MEDS: PANTOPRAZOLE 40 MG TABLET PO SCH (20:46)
[2017-06-28] MEDS: ALBUTEROL/IPRATROPIUM 3 ML NEB RESP TX SCH ×3 (01:44→12:18)
[2017-06-28] MEDS: PROPOFOL 1,000 MG/100 ML BOTTLE IV SCH ×2 (04:21→09:55)
[2017-06-28] MEDS: methylPREDNISolone SOD SUC 125 MG/2 ML VIAL IV SCH ×2 (05:30→12:52)
[2017-06-28] MEDS: INSULIN REGULAR 100 UNIT/ML SUBCUT SCH ×2 (05:31→12:48)
[2017-06-28] MEDS: fentaNYL INJ 1,250 MCG in SODIUM CHLORIDE 0.45% 225 ML IV SCH ×2 (06:24→15:04)
[2017-06-28 07:51] LABS: ABG Base Excess 6.5 MMOL/L (-2.5-2.5); ABG HCO3 30.1 MMOL/L (20-26); ABG Oxygen Saturation 88.9 % (95-100); ABG PCO2 41.4 MM HG (35-48); ABG PH 7.478 (7.35-7.45); ABG PO2 60.4 MM HG (80-95); ABG TCO2 26.2 MMOL/L (23-27)
[2017-06-28] MEDS: DOCUSATE SODIUM 100 MG/10 ML UDCUP PO SCH (09:38)
[2017-06-28] MEDS: LORATADINE 10 MG TABLET PO SCH (09:38)
[2017-06-28] MEDS: METOPROLOL TARTRATE 50 MG TABLET NG SCH (09:38)
[2017-06-28] MEDS: CITALOPRAM 20 MG TABLET PER TUBE SCH (09:38)
[2017-06-28] MEDS: risperiDONE 1 MG TABLET PER TUBE SCH (09:38)
[2017-06-28] MEDS: sitaGLIPtin 100 MG TABLET PO SCH (09:38)
[2017-06-28] MEDS: MULTIVITAMIN LIQUID (CENTRUM) 60 ML BOTTLE PER TUBE SCH (09:39)
[2017-06-28] MEDS: HALOPERIDOL 5 MG/ML AMP IV SCH (09:40)
[2017-06-28] MEDS: CLINDAMYCIN INJ 600 MG in PREMIX 1 EACH IV SCH (09:43)
[2017-06-28] MEDS: LEVOFLOXACIN INJ 750 MG in PREMIX 1 EACH IV SCH (09:54)
[2017-06-28] MEDS ORDERED: VANCOMYCIN INJ 1,250 MG in SODIUM CHLORIDE 0.45% 250 ML IV SCH (12:30)
[2017-06-28 13:30] VITALS: BP 134/64
== END 2017-06-28 14:10 | DRG 4 ==
LOC: SUATTDRO 23:00 → SUPCPDRO 23:00 → N.2E 23:00 → N.ICU 06-21 06:15
PROVIDERS: ADMIT Internal Medicine Infectious Disease; ATTEND Internal Medicine

== ENCOUNTER 2020-05-16 17:14 | Inpatient (IN) ==
[2020-05-16 18:02] LABS: Basophils % 0.2 % (0.0-0.8); Eosinophils % 0.1 % (0.00-10.9); Hematocrit 38.8 VOL% (35.7-47.0); Hemoglobin 13.4 GM/DL (12.0-16.0); Immature Granulocytes Absolute 0.12 #; Lymphocytes # 0.7 10*3/uL (1.4-4.0); Mean Corpuscular HGB Conc 34.5 GM/DL (32-36); Mean Corpuscular Volume 84.9 FL (87-102); Mean Platelet Volume 9.7 FL (9.6-12.0); Monocytes % 8.3 % (1.7-12.7); Neutrophils % 84.4 % (38.7-73.9); Platelet Count 210 T/CUMM (130-400); Red Blood Count 4.57 MC/CUMM (3.8-5.5); Red Cell Distribution Width 12.7 % (9.3-17.3); White Blood Count 12.1 T/CUMM (4-12)
[2020-05-16 18:13] LABS: Blood Urea Nitrogen 22 MG/DL (7-18); Calcium 8.3 MG/DL (8.5-10.1); Estimated Glom Filtration Rate 53 ML/MIN; Glucose 149 MG/DL (74-106); Osmolality,Calculated 265.8 MOS/KG (273-304)
[2020-05-16 18:30] LABS: Ferritin 358.4 ng/ml (8-252)
[2020-05-16] MEDS ORDERED: SODIUM CHLORIDE 0.9% 1,000 ML IV STA (19:18)
[2020-05-16 19:24] LABS: Band Neutrophils 3 % (0-10); Lymphocytes 9 % (20-55); Platelet Estimate Normal; Segmented Neutrophils 86 % (50-85); Total Cells Counted 100
[2020-05-16] MEDS ORDERED: LEVOFLOXACIN INJ 500 MG in PREMIX 1 EACH IV STA (19:58)
[2020-05-16] MEDS ORDERED: GLUCAGON 1 MG VIAL IM PRN (20:24)
[2020-05-16] MEDS ORDERED: DEXTROSE 50% 25 GM/50 ML VIAL IV PRN (20:24)
[2020-05-16] MEDS ORDERED: DEXTROSE 50% 25 GM/50 ML SYRINGE IV PRN (20:24)
[2020-05-16] MEDS: ACETAMINOPHEN 325 MG TABLET PO PRN (21:44)
[2020-05-16] MEDS: ENOXAPARIN 40 MG/0.4 ML SYRINGE SUBCUT SCH (22:35)
[2020-05-16] MEDS: FAMOTIDINE 20 MG TABLET PO SCH (22:35)
[2020-05-16] MEDS: INSULIN LISPRO 100 UNIT/ML SUBCUT SCH (22:35)
[2020-05-16] MEDS: CHOLESTYRAMINE 4 GM PACK PO SCH (22:35)
[2020-05-17] MEDS: ALBUTEROL INHALER 18 GM INH SCH ×4 (01:20→19:32)
[2020-05-17] MEDS ORDERED: diphenhydrAMINE CAP 25 MG CAPSULE PO ONE (02:53)
[2020-05-17 06:21] LABS: Basophils % 0.1 % (0.0-0.8); Hematocrit 35.9 VOL% (35.7-47.0); Hemoglobin 12.4 GM/DL (12.0-16.0); Immature Granulocytes % 0.9 %; Immature Granulocytes Absolute 0.07 #; Lymphocytes # 0.6 10*3/uL (1.4-4.0); Lymphocytes % 7.7 % (21.3-54.2); Mean Corpuscular HGB Conc 34.5 GM/DL (32-36); Mean Corpuscular Volume 83.9 FL (87-102); Monocytes % 11.9 % (1.7-12.7); Neutrophils % 79.4 % (38.7-73.9); Platelet Count 184 T/CUMM (130-400); Red Blood Count 4.28 MC/CUMM (3.8-5.5); Red Cell Distribution Width 12.7 % (9.3-17.3); White Blood Count 8.2 T/CUMM (4-12)
[2020-05-17 06:45] LABS: INR 1.1; PT Patient Result 11.5 SECS (9.8-11.9); Partial Thromboplastin Time 49.8 SECS (23.9-33.8)
[2020-05-17 06:50] LABS: Albumin 2.7 G/DL (3.4-5.0); Bilirubin,Total 1.2 MG/DL (0.2-1.0); Calcium 8.1 MG/DL (8.5-10.1); Ferritin 426.4 ng/ml (8-252); Osmolality,Calculated 260.9 MOS/KG (273-304); Total Protein 6.7 G/DL (6.4-8.3)
[2020-05-17] MEDS: INSULIN LISPRO 100 UNIT/ML SUBCUT SCH ×4 (07:30→21:40)
[2020-05-17] MEDS: DILTIAZEM CD 180 MG CAPSULE PO SCH (08:36)
[2020-05-17] MEDS: ASCORBIC ACID 500 MG TABLET PO SCH (08:36)
[2020-05-17] MEDS: CHOLECALCIFEROL 1,000 UNIT TABLET PO SCH (08:36)
[2020-05-17] MEDS: FAMOTIDINE 20 MG TABLET PO SCH ×2 (08:37→21:40)
[2020-05-17] MEDS: CHOLESTYRAMINE 4 GM PACK PO SCH ×2 (08:38→21:40)
[2020-05-17] MEDS: DEXAMETHASONE 4 MG/1 ML VIAL IV SCH (08:38)
[2020-05-17] MEDS: ZINC SULFATE 220 MG CAPSULE PO SCH (08:38)
[2020-05-17] MEDS: CETIRIZINE 10 MG TABLET PO SCH (08:38)
[2020-05-17] MEDS ORDERED: SODIUM CHLORIDE 0.9% 1,000 ML IV PRN (12:52)
[2020-05-17] MEDS ORDERED: REMDESIVIR 200 MG in SODIUM CHLORIDE 0.9% 210 ML IV ONE (13:30)
[2020-05-17] MEDS: ONDANSETRON 4 MG/2 ML VIAL IV PRN (14:39)
[2020-05-17] MEDS: LEVOFLOXACIN INJ 500 MG in PREMIX 1 EACH IV SCH (18:41)
[2020-05-17] MEDS: MENTHOL/ZINC OXIDE OINT 71 GM JAR TOP SCH (21:40)
[2020-05-17] MEDS: ENOXAPARIN 40 MG/0.4 ML SYRINGE SUBCUT SCH (21:40)
[2020-05-17] MEDS: ACETAMINOPHEN 325 MG TABLET PO PRN (22:30)
[2020-05-18] MEDS: ALBUTEROL INHALER 18 GM INH SCH ×4 (01:12→18:57)
[2020-05-18 05:43] LABS: Basophils % 0.1 % (0.0-0.8); Hematocrit 40.5 VOL% (35.7-47.0); Hemoglobin 13.8 GM/DL (12.0-16.0); Immature Granulocytes % 1.1 %; Immature Granulocytes Absolute 0.08 #; Lymphocytes # 0.8 10*3/uL (1.4-4.0); Mean Corpuscular HGB Conc 34.1 GM/DL (32-36); Mean Corpuscular Volume 85.1 FL (87-102); Monocytes % 18.2 % (1.7-12.7); Neutrophils % 69.6 % (38.7-73.9); Platelet Count 216 T/CUMM (130-400); Red Blood Count 4.76 MC/CUMM (3.8-5.5); Red Cell Distribution Width 12.5 % (9.3-17.3); White Blood Count 7.2 T/CUMM (4-12)
[2020-05-18 06:06] LABS: Atypical Lymphocytes Few; Band Neutrophils 1 % (0-10); Lymphocytes 15 % (20-55); Segmented Neutrophils 75 % (50-85); Total Cells Counted 100
[2020-05-18 06:07] LABS: Calcium 8.4 MG/DL (8.5-10.1); Microcytosis Slight; Osmolality,Calculated 264.8 MOS/KG (273-304)
[2020-05-18] MEDS: ONDANSETRON 4 MG/2 ML VIAL IV PRN (09:21)
[2020-05-18] MEDS: INSULIN LISPRO 100 UNIT/ML SUBCUT SCH ×4 (09:21→21:58)
[2020-05-18] MEDS: CHOLECALCIFEROL 1,000 UNIT TABLET PO SCH (09:25)
[2020-05-18] MEDS: ASCORBIC ACID 500 MG TABLET PO SCH (09:25)
[2020-05-18] MEDS: CETIRIZINE 10 MG TABLET PO SCH (09:26)
[2020-05-18] MEDS: FAMOTIDINE 20 MG TABLET PO SCH ×2 (09:26→21:59)
[2020-05-18] MEDS: CHOLESTYRAMINE 4 GM PACK PO SCH ×2 (09:27→21:59)
[2020-05-18] MEDS: MENTHOL/ZINC OXIDE OINT 71 GM JAR TOP SCH ×2 (09:27→21:58)
[2020-05-18] MEDS: DILTIAZEM CD 180 MG CAPSULE PO SCH (09:27)
[2020-05-18] MEDS: DEXAMETHASONE 4 MG/1 ML VIAL IV SCH (09:29)
[2020-05-18] MEDS: REMDESIVIR 100 MG in SODIUM CHLORIDE 0.9% 230 ML IV SCH (09:29)
[2020-05-18] MEDS: DESITIN 4OZ/NYSTATIN 15 GRAM MIXTURE PASTE TOP SCH ×2 (11:59→22:00)
[2020-05-18] MEDS: LEVOFLOXACIN INJ 500 MG in PREMIX 1 EACH IV SCH (17:56)
[2020-05-18] MEDS: ENOXAPARIN 40 MG/0.4 ML SYRINGE SUBCUT SCH (21:59)
[2020-05-18] MEDS: ACETAMINOPHEN 325 MG TABLET PO PRN (22:10)
[2020-05-19] MEDS: ONDANSETRON 4 MG/2 ML VIAL IV PRN (00:26)
[2020-05-19] MEDS: ALBUTEROL INHALER 18 GM INH SCH ×4 (01:17→20:08)
[2020-05-19 05:43] LABS: Basophils % 0.1 % (0.0-0.8); Hematocrit 42.2 VOL% (35.7-47.0); Hemoglobin 14.6 GM/DL (12.0-16.0); Immature Granulocytes % 1.3 %; Lymphocytes # 0.8 10*3/uL (1.4-4.0); Lymphocytes % 10.4 % (21.3-54.2); Mean Corpuscular HGB Conc 34.6 GM/DL (32-36); Mean Corpuscular Volume 83.7 FL (87-102); Mean Platelet Volume 10.2 FL (9.6-12.0); Monocytes % 16.5 % (1.7-12.7); Neutrophils % 71.7 % (38.7-73.9); Platelet Count 301 T/CUMM (130-400); Red Blood Count 5.04 MC/CUMM (3.8-5.5); Red Cell Distribution Width 12.2 % (9.3-17.3)
[2020-05-19 06:06] LABS: Band Neutrophils 1 % (0-10); Hypochromasia 1+; Lymphocytes 6 % (20-55); Segmented Neutrophils 80 % (50-85); Total Cells Counted 100
[2020-05-19 06:07] LABS: Microcytosis 1+; Platelet Estimate Normal
[2020-05-19 06:10] LABS: Calcium 8.7 MG/DL (8.5-10.1); Osmolality,Calculated 263.1 MOS/KG (273-304)
[2020-05-19] MEDS ORDERED: MORPHINE 4 MG/1 ML VIAL IV ONE (08:15)
[2020-05-19 08:42] LABS: ABG Base Excess 1.2 MMOL/L (-2.5-2.5); ABG HCO3 25.3 MMOL/L (20-26); ABG Oxygen Saturation 89.7 % (95-100); ABG PCO2 35.2 MM HG (35-48); ABG PH 7.452 (7.35-7.45); ABG PO2 58.7 MM HG (80-95); ABG TCO2 20.9 MMOL/L (23-27)
[2020-05-19] MEDS: INSULIN LISPRO 100 UNIT/ML SUBCUT SCH ×4 (08:49→22:14)
[2020-05-19] MEDS: DEXAMETHASONE 4 MG/1 ML VIAL IV SCH (08:51)
[2020-05-19] MEDS: CHOLECALCIFEROL 1,000 UNIT TABLET PO SCH (08:51)
[2020-05-19] MEDS: CHOLESTYRAMINE 4 GM PACK PO SCH ×2 (08:51→22:18)
[2020-05-19] MEDS: FAMOTIDINE 20 MG TABLET PO SCH ×2 (08:51→21:42)
[2020-05-19] MEDS: ACETAMINOPHEN 325 MG TABLET PO PRN (08:52)
[2020-05-19] MEDS: ZINC SULFATE 220 MG CAPSULE PO SCH (08:52)
[2020-05-19] MEDS: ASCORBIC ACID 500 MG TABLET PO SCH (08:52)
[2020-05-19] MEDS: DILTIAZEM CD 180 MG CAPSULE PO SCH (08:52)
[2020-05-19] MEDS: CETIRIZINE 10 MG TABLET PO SCH (08:52)
[2020-05-19] MEDS: MENTHOL/ZINC OXIDE OINT 71 GM JAR TOP SCH ×2 (08:53→21:42)
[2020-05-19] MEDS: REMDESIVIR 100 MG in SODIUM CHLORIDE 0.9% 230 ML IV SCH (08:53)
[2020-05-19] MEDS: DESITIN 4OZ/NYSTATIN 15 GRAM MIXTURE PASTE TOP SCH ×2 (08:54→21:42)
[2020-05-19] MEDS: MORPHINE 4 MG/1 ML VIAL IV PRN ×2 (14:25→20:08)
[2020-05-19] MEDS: LEVOFLOXACIN INJ 500 MG in PREMIX 1 EACH IV SCH (17:38)
[2020-05-19] MEDS: ATORVASTATIN 10 MG TABLET PO SCH (21:42)
[2020-05-19] MEDS: BENZTROPINE 1 MG TABLET PO SCH (21:42)
[2020-05-19] MEDS: METOPROLOL SUCCINATE XL 50 MG TABLET PO SCH (21:42)
[2020-05-19] MEDS: ENOXAPARIN 40 MG/0.4 ML SYRINGE SUBCUT SCH (21:42)
[2020-05-20] MEDS: ALBUTEROL INHALER 18 GM INH SCH ×4 (00:59→19:01)
[2020-05-20] MEDS: ACETAMINOPHEN 325 MG TABLET PO PRN ×3 (03:19→21:14)
[2020-05-20] MEDS: ONDANSETRON 4 MG/2 ML VIAL IV PRN (03:20)
[2020-05-20 05:52] LABS: Basophils % 0.2 % (0.0-0.8); Hematocrit 42.3 VOL% (35.7-47.0); Hemoglobin 14.6 GM/DL (12.0-16.0); Immature Granulocytes % 1.2 %; Immature Granulocytes Absolute 0.12 #; Lymphocytes # 0.7 10*3/uL (1.4-4.0); Lymphocytes % 7.5 % (21.3-54.2); Mean Corpuscular HGB Conc 34.5 GM/DL (32-36); Mean Corpuscular Volume 83.4 FL (87-102); Monocytes % 16.6 % (1.7-12.7); Neutrophils % 74.5 % (38.7-73.9); Platelet Count 342 T/CUMM (130-400); Red Blood Count 5.07 MC/CUMM (3.8-5.5); Red Cell Distribution Width 12.2 % (9.3-17.3); White Blood Count 9.9 T/CUMM (4-12)
[2020-05-20 05:55] LABS: Calcium 8.6 MG/DL (8.5-10.1); Osmolality,Calculated 272.5 MOS/KG (273-304)
[2020-05-20 06:22] LABS: Lymphocytes 5 % (20-55); Microcytosis Slight; Platelet Estimate Adequate; Segmented Neutrophils 81 % (50-85); Total Cells Counted 100
[2020-05-20] MEDS: INSULIN LISPRO 100 UNIT/ML SUBCUT SCH ×4 (08:59→21:14)
[2020-05-20] MEDS: DILTIAZEM CD 180 MG CAPSULE PO SCH (08:59)
[2020-05-20] MEDS: CETIRIZINE 10 MG TABLET PO SCH (09:00)
[2020-05-20] MEDS: ESCITALOPRAM 10 MG TABLET PO SCH (09:00)
[2020-05-20] MEDS: FAMOTIDINE 20 MG TABLET PO SCH ×2 (09:00→21:14)
[2020-05-20] MEDS: ASCORBIC ACID 500 MG TABLET PO SCH (09:00)
[2020-05-20] MEDS: MENTHOL/ZINC OXIDE OINT 71 GM JAR TOP SCH ×2 (09:00→21:14)
[2020-05-20] MEDS: CHOLECALCIFEROL 1,000 UNIT TABLET PO SCH (09:00)
[2020-05-20] MEDS: METOPROLOL SUCCINATE XL 50 MG TABLET PO SCH ×2 (09:00→21:14)
[2020-05-20] MEDS: DEXAMETHASONE 4 MG/1 ML VIAL IV SCH (09:01)
[2020-05-20] MEDS: CHOLESTYRAMINE 4 GM PACK PO SCH ×2 (09:01→21:15)
[2020-05-20] MEDS: DESITIN 4OZ/NYSTATIN 15 GRAM MIXTURE PASTE TOP SCH ×2 (09:02→21:15)
[2020-05-20] MEDS: REMDESIVIR 100 MG in SODIUM CHLORIDE 0.9% 230 ML IV SCH (11:36)
[2020-05-20] MEDS: LEVOFLOXACIN INJ 500 MG in PREMIX 1 EACH IV SCH (17:43)
[2020-05-20 20:15] LABS: ABG Base Excess 1.7 MMOL/L (-2.5-2.5); ABG HCO3 25.7 MMOL/L (20-26); ABG Oxygen Saturation 90.9 % (95-100); ABG PCO2 33.4 MM HG (35-48); ABG PH 7.475 (7.35-7.45); ABG PO2 61.7 MM HG (80-95)
[2020-05-20] MEDS: ENOXAPARIN 40 MG/0.4 ML SYRINGE SUBCUT SCH (21:14)
[2020-05-20] MEDS: ATORVASTATIN 10 MG TABLET PO SCH (21:15)
[2020-05-20] MEDS: BENZTROPINE 1 MG TABLET PO SCH (21:15)
[2020-05-21] MEDS: ALBUTEROL INHALER 18 GM INH SCH ×4 (00:30→21:50)
[2020-05-21] MEDS: ZINC SULFATE 220 MG CAPSULE PO SCH (09:20)
[2020-05-21] MEDS: FAMOTIDINE 20 MG TABLET PO SCH ×2 (09:20→21:54)
[2020-05-21] MEDS: CETIRIZINE 10 MG TABLET PO SCH (09:20)
[2020-05-21] MEDS: CHOLESTYRAMINE 4 GM PACK PO SCH ×2 (09:20→21:54)
[2020-05-21] MEDS: DILTIAZEM CD 180 MG CAPSULE PO SCH (09:20)
[2020-05-21] MEDS: DEXAMETHASONE 4 MG/1 ML VIAL IV SCH (09:20)
[2020-05-21] MEDS: ASCORBIC ACID 500 MG TABLET PO SCH (09:20)
[2020-05-21] MEDS: ESCITALOPRAM 10 MG TABLET PO SCH (09:20)
[2020-05-21] MEDS: DESITIN 4OZ/NYSTATIN 15 GRAM MIXTURE PASTE TOP SCH ×2 (09:20→21:54)
[2020-05-21] MEDS: MENTHOL/ZINC OXIDE OINT 71 GM JAR TOP SCH ×2 (09:20→21:53)
[2020-05-21] MEDS: CHOLECALCIFEROL 1,000 UNIT TABLET PO SCH (09:20)
[2020-05-21] MEDS: METOPROLOL SUCCINATE XL 50 MG TABLET PO SCH ×2 (09:20→21:54)
[2020-05-21] MEDS: REMDESIVIR 100 MG in SODIUM CHLORIDE 0.9% 230 ML IV SCH (09:56)
[2020-05-21] MEDS: INSULIN LISPRO 100 UNIT/ML SUBCUT SCH ×4 (11:41→22:17)
[2020-05-21] MEDS: LEVOFLOXACIN INJ 500 MG in PREMIX 1 EACH IV SCH (17:05)
[2020-05-21] MEDS: BENZTROPINE 1 MG TABLET PO SCH (21:53)
[2020-05-21] MEDS: ENOXAPARIN 40 MG/0.4 ML SYRINGE SUBCUT SCH (21:54)
[2020-05-21] MEDS: ATORVASTATIN 10 MG TABLET PO SCH (21:54)
[2020-05-21] MEDS: ACETAMINOPHEN 325 MG TABLET PO PRN (21:54)
[2020-05-22] MEDS: ALBUTEROL INHALER 18 GM INH SCH ×4 (02:10→18:01)
[2020-05-22] MEDS: CHOLECALCIFEROL 1,000 UNIT TABLET PO SCH (08:17)
[2020-05-22] MEDS: FAMOTIDINE 20 MG TABLET PO SCH ×2 (08:17→20:59)
[2020-05-22] MEDS: ASCORBIC ACID 500 MG TABLET PO SCH (08:17)
[2020-05-22] MEDS: ESCITALOPRAM 10 MG TABLET PO SCH (08:18)
[2020-05-22] MEDS: DILTIAZEM CD 180 MG CAPSULE PO SCH (08:20)
[2020-05-22] MEDS: CHOLESTYRAMINE 4 GM PACK PO SCH ×2 (08:20→20:59)
[2020-05-22] MEDS: DEXAMETHASONE 4 MG TABLET PO SCH (08:21)
[2020-05-22] MEDS: METOPROLOL SUCCINATE XL 50 MG TABLET PO SCH ×2 (08:21→20:59)
[2020-05-22] MEDS: CETIRIZINE 10 MG TABLET PO SCH (08:21)
[2020-05-22] MEDS: DESITIN 4OZ/NYSTATIN 15 GRAM MIXTURE PASTE TOP SCH ×2 (08:22→20:58)
[2020-05-22] MEDS: MENTHOL/ZINC OXIDE OINT 71 GM JAR TOP SCH ×2 (08:22→20:58)
[2020-05-22] MEDS: INSULIN LISPRO 100 UNIT/ML SUBCUT SCH ×4 (08:47→21:13)
[2020-05-22] MEDS: LEVOFLOXACIN INJ 500 MG in PREMIX 1 EACH IV SCH (17:04)
[2020-05-22] MEDS: ENOXAPARIN 40 MG/0.4 ML SYRINGE SUBCUT SCH (20:58)
[2020-05-22] MEDS: ATORVASTATIN 10 MG TABLET PO SCH (20:58)
[2020-05-22] MEDS: BENZTROPINE 1 MG TABLET PO SCH (20:58)
[2020-05-23] MEDS: ALBUTEROL INHALER 18 GM INH SCH ×4 (01:43→18:09)
[2020-05-23 06:19] LABS: Basophils # 0.1 10*3/uL (0.0-0.2); Basophils % 0.3 % (0.0-0.8); Hematocrit 44.1 VOL% (35.7-47.0); Immature Granulocytes % 1.7 %; Lymphocytes # 1.1 10*3/uL (1.4-4.0); Lymphocytes % 4.6 % (21.3-54.2); Mean Corpuscular Volume 82.6 FL (87-102); Mean Platelet Volume 10.3 FL (9.6-12.0); Monocytes % 8.7 % (1.7-12.7); Neutrophils % 84.7 % (38.7-73.9); Platelet Count 471 T/CUMM (130-400); Red Blood Count 5.34 MC/CUMM (3.8-5.5); Red Cell Distribution Width 12.1 % (9.3-17.3); White Blood Count 23.5 T/CUMM (4-12)
[2020-05-23 06:40] LABS: Calcium 8.9 MG/DL (8.5-10.1); Ferritin 579.6 ng/ml (8-252); Osmolality,Calculated 269.5 MOS/KG (273-304)
[2020-05-23 06:51] LABS: Lymphocytes 5 % (20-55); Platelet Estimate Increased; Segmented Neutrophils 88 % (50-85); Total Cells Counted 100
[2020-05-23] MEDS: ESTRADIOL 0.1 MG PATCH (1X WK) TRANSDERM SCH (08:37)
[2020-05-23] MEDS: DILTIAZEM CD 180 MG CAPSULE PO SCH (08:37)
[2020-05-23] MEDS: MENTHOL/ZINC OXIDE OINT 71 GM JAR TOP SCH ×2 (08:37→21:24)
[2020-05-23] MEDS: INSULIN LISPRO 100 UNIT/ML SUBCUT SCH ×4 (08:37→21:25)
[2020-05-23] MEDS: ZINC SULFATE 220 MG CAPSULE PO SCH (08:38)
[2020-05-23] MEDS: CETIRIZINE 10 MG TABLET PO SCH (08:38)
[2020-05-23] MEDS: DEXAMETHASONE 4 MG TABLET PO SCH (08:38)
[2020-05-23] MEDS: ASCORBIC ACID 500 MG TABLET PO SCH (08:38)
[2020-05-23] MEDS: ESCITALOPRAM 10 MG TABLET PO SCH (08:38)
[2020-05-23] MEDS: CHOLESTYRAMINE 4 GM PACK PO SCH ×2 (08:38→21:26)
[2020-05-23] MEDS: CHOLECALCIFEROL 1,000 UNIT TABLET PO SCH (08:38)
[2020-05-23] MEDS: FAMOTIDINE 20 MG TABLET PO SCH ×2 (08:38→21:26)
[2020-05-23] MEDS: METOPROLOL SUCCINATE XL 50 MG TABLET PO SCH ×2 (08:38→21:26)
[2020-05-23] MEDS: DESITIN 4OZ/NYSTATIN 15 GRAM MIXTURE PASTE TOP SCH ×2 (08:38→21:26)
[2020-05-23] MEDS: BENZTROPINE 1 MG TABLET PO SCH (21:24)
[2020-05-23] MEDS: ATORVASTATIN 10 MG TABLET PO SCH (21:25)
[2020-05-23] MEDS: ENOXAPARIN 40 MG/0.4 ML SYRINGE SUBCUT SCH (21:25)
[2020-05-23] MEDS: ONDANSETRON 4 MG/2 ML VIAL IV PRN (21:26)
[2020-05-24] MEDS: ALBUTEROL INHALER 18 GM INH SCH ×4 (01:58→18:11)
[2020-05-24 06:10] LABS: Basophils # 0.1 10*3/uL (0.0-0.2); Basophils % 0.4 % (0.0-0.8); Hematocrit 42.7 VOL% (35.7-47.0); Immature Granulocytes % 2.4 %; Immature Granulocytes Absolute 0.38 #; Lymphocytes # 0.9 10*3/uL (1.4-4.0); Lymphocytes % 5.8 % (21.3-54.2); Mean Corpuscular HGB Conc 35.1 GM/DL (32-36); Mean Corpuscular Volume 81.8 FL (87-102); Mean Platelet Volume 10.1 FL (9.6-12.0); Neutrophils % 79.4 % (38.7-73.9); Platelet Count 514 T/CUMM (130-400); Red Blood Count 5.22 MC/CUMM (3.8-5.5); Red Cell Distribution Width 12.1 % (9.3-17.3)
[2020-05-24 07:25] LABS: Calcium 7.6 MG/DL (8.5-10.1); Osmolality,Calculated 265.9 MOS/KG (273-304)
[2020-05-24] MEDS: INSULIN LISPRO 100 UNIT/ML SUBCUT SCH ×4 (07:56→20:44)
[2020-05-24] MEDS: MENTHOL/ZINC OXIDE OINT 71 GM JAR TOP SCH ×2 (08:01→20:45)
[2020-05-24] MEDS: METOPROLOL SUCCINATE XL 50 MG TABLET PO SCH ×2 (08:01→20:46)
[2020-05-24] MEDS: DESITIN 4OZ/NYSTATIN 15 GRAM MIXTURE PASTE TOP SCH ×2 (08:01→20:46)
[2020-05-24] MEDS: LEVOFLOXACIN 500 MG TABLET PO SCH (08:01)
[2020-05-24] MEDS: DEXAMETHASONE 4 MG TABLET PO SCH (08:01)
[2020-05-24] MEDS: DILTIAZEM CD 180 MG CAPSULE PO SCH (08:01)
[2020-05-24] MEDS: ESCITALOPRAM 10 MG TABLET PO SCH (08:01)
[2020-05-24] MEDS: ASCORBIC ACID 500 MG TABLET PO SCH (08:01)
[2020-05-24] MEDS: CHOLESTYRAMINE 4 GM PACK PO SCH ×2 (08:01→20:45)
[2020-05-24] MEDS: CHOLECALCIFEROL 1,000 UNIT TABLET PO SCH (08:01)
[2020-05-24] MEDS: FAMOTIDINE 20 MG TABLET PO SCH ×2 (08:01→20:45)
[2020-05-24] MEDS: CETIRIZINE 10 MG TABLET PO SCH (08:02)
[2020-05-24] MEDS: ATORVASTATIN 10 MG TABLET PO SCH (20:45)
[2020-05-24] MEDS: ENOXAPARIN 40 MG/0.4 ML SYRINGE SUBCUT SCH (20:45)
[2020-05-24] MEDS: BENZTROPINE 1 MG TABLET PO SCH (20:45)
[2020-05-25] MEDS: MORPHINE 4 MG/1 ML VIAL IV PRN (01:05)
[2020-05-25] MEDS: ALBUTEROL INHALER 18 GM INH SCH ×4 (01:59→18:56)
[2020-05-25 06:18] LABS: Basophils # 0.1 10*3/uL (0.0-0.2); Basophils % 0.5 % (0.0-0.8); Hematocrit 41.4 VOL% (35.7-47.0); Hemoglobin 14.3 GM/DL (12.0-16.0); Immature Granulocytes % 3.1 %; Immature Granulocytes Absolute 0.53 #; Lymphocytes # 0.6 10*3/uL (1.4-4.0); Lymphocytes % 3.5 % (21.3-54.2); Mean Corpuscular HGB Conc 34.5 GM/DL (32-36); Mean Corpuscular Volume 83.1 FL (87-102); Mean Platelet Volume 10.3 FL (9.6-12.0); Monocytes % 12.2 % (1.7-12.7); Neutrophils % 80.7 % (38.7-73.9); Platelet Count 471 T/CUMM (130-400); Red Blood Count 4.98 MC/CUMM (3.8-5.5); Red Cell Distribution Width 12.1 % (9.3-17.3); White Blood Count 16.9 T/CUMM (4-12)
[2020-05-25 06:32] LABS: Calcium 8.6 MG/DL (8.5-10.1); Osmolality,Calculated 270.9 MOS/KG (273-304)
[2020-05-25 06:48] LABS: Band Neutrophils 1 % (0-10); Lymphocytes 4 % (20-55); Platelet Estimate Adequate; Segmented Neutrophils 88 % (50-85); Total Cells Counted 100
[2020-05-25 06:49] LABS: Hypochromasia Slight; Microcytosis 1+
[2020-05-25] MEDS: MENTHOL/ZINC OXIDE OINT 71 GM JAR TOP SCH ×2 (09:44→21:05)
[2020-05-25] MEDS: DILTIAZEM CD 180 MG CAPSULE PO SCH (09:44)
[2020-05-25] MEDS: DEXAMETHASONE 4 MG TABLET PO SCH (09:44)
[2020-05-25] MEDS: INSULIN LISPRO 100 UNIT/ML SUBCUT SCH ×4 (09:44→21:05)
[2020-05-25] MEDS: DESITIN 4OZ/NYSTATIN 15 GRAM MIXTURE PASTE TOP SCH ×2 (09:44→21:06)
[2020-05-25] MEDS: LEVOFLOXACIN 500 MG TABLET PO SCH (09:44)
[2020-05-25] MEDS: CETIRIZINE 10 MG TABLET PO SCH (09:45)
[2020-05-25] MEDS: ZINC SULFATE 220 MG CAPSULE PO SCH (09:45)
[2020-05-25] MEDS: FAMOTIDINE 20 MG TABLET PO SCH ×2 (09:45→21:00)
[2020-05-25] MEDS: CHOLECALCIFEROL 1,000 UNIT TABLET PO SCH (09:45)
[2020-05-25] MEDS: CHOLESTYRAMINE 4 GM PACK PO SCH ×2 (09:45→21:00)
[2020-05-25] MEDS: ASCORBIC ACID 500 MG TABLET PO SCH (09:45)
[2020-05-25] MEDS: ESCITALOPRAM 10 MG TABLET PO SCH (09:45)
[2020-05-25] MEDS: METOPROLOL SUCCINATE XL 50 MG TABLET PO SCH ×2 (09:45→21:00)
[2020-05-25] MEDS: BENZTROPINE 1 MG TABLET PO SCH (21:00)
[2020-05-25] MEDS: ATORVASTATIN 10 MG TABLET PO SCH (21:00)
[2020-05-25] MEDS: ENOXAPARIN 40 MG/0.4 ML SYRINGE SUBCUT SCH (21:05)
[2020-05-26] MEDS: ALBUTEROL INHALER 18 GM INH SCH ×4 (00:45→18:00)
[2020-05-26 06:27] LABS: Basophils # 0.1 10*3/uL (0.0-0.2); Basophils % 0.3 % (0.0-0.8); Eosinophils # 0.1 10*3/uL (0.0-0.87); Eosinophils % 0.4 % (0.00-10.9); Hematocrit 41.2 VOL% (35.7-47.0); Hemoglobin 14.1 GM/DL (12.0-16.0); Immature Granulocytes Absolute 0.31 #; Lymphocytes % 6.1 % (21.3-54.2); Mean Corpuscular HGB Conc 34.2 GM/DL (32-36); Mean Corpuscular Volume 83.2 FL (87-102); Mean Platelet Volume 10.3 FL (9.6-12.0); Neutrophils % 81.2 % (38.7-73.9); Platelet Count 374 T/CUMM (130-400); Red Blood Count 4.95 MC/CUMM (3.8-5.5); Red Cell Distribution Width 12.1 % (9.3-17.3); White Blood Count 15.6 T/CUMM (4-12)
[2020-05-26 06:49] LABS: Calcium 8.4 MG/DL (8.5-10.1); Osmolality,Calculated 260.1 MOS/KG (273-304)
[2020-05-26] MEDS: DILTIAZEM CD 180 MG CAPSULE PO SCH (08:56)
[2020-05-26] MEDS: FAMOTIDINE 20 MG TABLET PO SCH ×2 (08:56→20:00)
[2020-05-26] MEDS: INSULIN LISPRO 100 UNIT/ML SUBCUT SCH ×4 (08:56→20:48)
[2020-05-26] MEDS: CETIRIZINE 10 MG TABLET PO SCH (08:56)
[2020-05-26] MEDS: METOPROLOL SUCCINATE XL 50 MG TABLET PO SCH ×2 (08:56→20:00)
[2020-05-26] MEDS: ESCITALOPRAM 10 MG TABLET PO SCH (08:56)
[2020-05-26] MEDS: ASCORBIC ACID 500 MG TABLET PO SCH (08:56)
[2020-05-26] MEDS: CHOLECALCIFEROL 1,000 UNIT TABLET PO SCH (08:56)
[2020-05-26] MEDS: LEVOFLOXACIN 500 MG TABLET PO SCH (08:56)
[2020-05-26] MEDS: MENTHOL/ZINC OXIDE OINT 71 GM JAR TOP SCH ×2 (08:56→20:00)
[2020-05-26] MEDS: CHOLESTYRAMINE 4 GM PACK PO SCH ×2 (08:56→20:00)
[2020-05-26] MEDS: DEXAMETHASONE 4 MG TABLET PO SCH (08:56)
[2020-05-26] MEDS: DESITIN 4OZ/NYSTATIN 15 GRAM MIXTURE PASTE TOP SCH ×2 (08:56→20:00)
[2020-05-26] MEDS: ACETAMINOPHEN 325 MG TABLET PO PRN ×2 (10:19→20:25)
[2020-05-26] MEDS: BENZTROPINE 1 MG TABLET PO SCH (20:00)
[2020-05-26] MEDS: ATORVASTATIN 10 MG TABLET PO SCH (20:00)
[2020-05-26] MEDS: ENOXAPARIN 40 MG/0.4 ML SYRINGE SUBCUT SCH (20:24)
[2020-05-27] MEDS: ALBUTEROL INHALER 18 GM INH SCH ×4 (00:32→22:40)
[2020-05-27 06:55] LABS: Calcium 8.4 MG/DL (8.5-10.1); Osmolality,Calculated 255.6 MOS/KG (273-304); Thyroid Stimulating Hormone 0.519 uIU/ml (0.358-3.74)
[2020-05-27 08:30] LABS: Basophils # 0.1 10*3/uL (0.0-0.2); Basophils % 0.4 % (0.0-0.8); Eosinophils % 0.2 % (0.00-10.9); Hematocrit 41.2 VOL% (35.7-47.0); Hemoglobin 14.4 GM/DL (12.0-16.0); Immature Granulocytes % 1.8 %; Immature Granulocytes Absolute 0.31 #; Lymphocytes # 0.8 10*3/uL (1.4-4.0); Lymphocytes % 4.9 % (21.3-54.2); Mean Corpuscular Volume 82.2 FL (87-102); Mean Platelet Volume 10.3 FL (9.6-12.0); Monocytes % 11.6 % (1.7-12.7); Neutrophils % 81.1 % (38.7-73.9); Platelet Count 398 T/CUMM (130-400); Red Blood Count 5.01 MC/CUMM (3.8-5.5); White Blood Count 16.8 T/CUMM (4-12)
[2020-05-27] MEDS: MULTIVITAMIN (CENTRUM) TABLET PO SCH (08:49)
[2020-05-27] MEDS: ASCORBIC ACID 500 MG TABLET PO SCH (08:49)
[2020-05-27] MEDS: LEVOFLOXACIN 500 MG TABLET PO SCH (08:50)
[2020-05-27] MEDS: ZINC SULFATE 220 MG CAPSULE PO SCH (08:50)
[2020-05-27] MEDS: METOPROLOL SUCCINATE XL 50 MG TABLET PO SCH ×2 (08:50→22:42)
[2020-05-27] MEDS: ESCITALOPRAM 10 MG TABLET PO SCH (08:50)
[2020-05-27] MEDS: CHOLECALCIFEROL 1,000 UNIT TABLET PO SCH (08:50)
[2020-05-27] MEDS: CETIRIZINE 10 MG TABLET PO SCH (08:50)
[2020-05-27] MEDS: DEXAMETHASONE 4 MG TABLET PO SCH (08:50)
[2020-05-27] MEDS: FAMOTIDINE 20 MG TABLET PO SCH ×2 (08:51→22:41)
[2020-05-27] MEDS: INSULIN LISPRO 100 UNIT/ML SUBCUT SCH ×4 (08:51→22:41)
[2020-05-27] MEDS: CHOLESTYRAMINE 4 GM PACK PO SCH ×3 (08:51→22:42)
[2020-05-27] MEDS: DILTIAZEM CD 180 MG CAPSULE PO SCH (08:52)
[2020-05-27 08:53] LABS: Lymphocytes 2 % (20-55); Platelet Estimate Adequate; Segmented Neutrophils 86 % (50-85); Total Cells Counted 100
[2020-05-27] MEDS: MENTHOL/ZINC OXIDE OINT 71 GM JAR TOP SCH ×2 (09:36→22:40)
[2020-05-27] MEDS: DESITIN 4OZ/NYSTATIN 15 GRAM MIXTURE PASTE TOP SCH ×2 (09:36→22:42)
[2020-05-27] MEDS: methylPREDNISolone SOD SUC 40 MG/1 ML VIAL IV SCH ×2 (12:10→23:30)
[2020-05-27] MEDS: ONDANSETRON 4 MG/2 ML VIAL IV PRN (18:23)
[2020-05-27] MEDS: BENZTROPINE 1 MG TABLET PO SCH (22:40)
[2020-05-27] MEDS: ENOXAPARIN 40 MG/0.4 ML SYRINGE SUBCUT SCH (22:41)
[2020-05-27] MEDS: ATORVASTATIN 10 MG TABLET PO SCH (22:41)
[2020-05-27] MEDS: ACETAMINOPHEN 325 MG TABLET PO PRN (22:43)
[2020-05-28] MEDS: ALBUTEROL INHALER 18 GM INH SCH ×4 (00:48→18:07)
[2020-05-28 06:29] LABS: Basophils % 0.3 % (0.0-0.8); Hematocrit 40.6 VOL% (35.7-47.0); Hemoglobin 14.5 GM/DL (12.0-16.0); Immature Granulocytes % 2.2 %; Immature Granulocytes Absolute 0.35 #; Lymphocytes # 0.7 10*3/uL (1.4-4.0); Lymphocytes % 4.3 % (21.3-54.2); Mean Corpuscular HGB Conc 35.7 GM/DL (32-36); Mean Corpuscular Volume 80.4 FL (87-102); Mean Platelet Volume 10.6 FL (9.6-12.0); Monocytes % 6.4 % (1.7-12.7); Neutrophils % 86.8 % (38.7-73.9); Platelet Count 408 T/CUMM (130-400); Red Blood Count 5.05 MC/CUMM (3.8-5.5); White Blood Count 15.7 T/CUMM (4-12)
[2020-05-28 06:44] LABS: Calcium 8.8 MG/DL (8.5-10.1); Osmolality,Calculated 259.6 MOS/KG (273-304)
[2020-05-28 06:55] LABS: Hypochromasia 1+; Lymphocytes 3 % (20-55); Microcytosis 1+; Platelet Estimate Adequate; Segmented Neutrophils 91 % (50-85); Total Cells Counted 100
[2020-05-28] MEDS: ESCITALOPRAM 10 MG TABLET PO SCH (08:15)
[2020-05-28] MEDS: CHOLECALCIFEROL 1,000 UNIT TABLET PO SCH (08:16)
[2020-05-28] MEDS: CETIRIZINE 10 MG TABLET PO SCH (08:16)
[2020-05-28] MEDS: METOPROLOL SUCCINATE XL 50 MG TABLET PO SCH (08:16)
[2020-05-28] MEDS: LEVOFLOXACIN 500 MG TABLET PO SCH (08:16)
[2020-05-28] MEDS: DILTIAZEM CD 180 MG CAPSULE PO SCH (08:16)
[2020-05-28] MEDS: CHOLESTYRAMINE 4 GM PACK PO SCH ×2 (08:17→21:38)
[2020-05-28] MEDS: MULTIVITAMIN (CENTRUM) TABLET PO SCH (08:17)
[2020-05-28] MEDS: FAMOTIDINE 20 MG TABLET PO SCH ×2 (08:17→21:37)
[2020-05-28] MEDS: MENTHOL/ZINC OXIDE OINT 71 GM JAR TOP SCH ×2 (08:17→21:36)
[2020-05-28] MEDS: ASCORBIC ACID 500 MG TABLET PO SCH (08:17)
[2020-05-28] MEDS: DESITIN 4OZ/NYSTATIN 15 GRAM MIXTURE PASTE TOP SCH ×2 (08:18→21:46)
[2020-05-28] MEDS: INSULIN LISPRO 100 UNIT/ML SUBCUT SCH ×4 (10:10→21:47)
[2020-05-28] MEDS: methylPREDNISolone SOD SUC 40 MG/1 ML VIAL IV SCH ×2 (14:24→23:03)
[2020-05-28] MEDS: ACETAMINOPHEN 325 MG TABLET PO PRN (21:36)
[2020-05-28] MEDS: ENOXAPARIN 40 MG/0.4 ML SYRINGE SUBCUT SCH (21:36)
[2020-05-28] MEDS: ATORVASTATIN 10 MG TABLET PO SCH (21:36)
[2020-05-28] MEDS: BENZTROPINE 1 MG TABLET PO SCH (21:36)
[2020-05-29] MEDS: ALBUTEROL INHALER 18 GM INH SCH ×4 (00:11→22:17)
[2020-05-29 05:56] LABS: Basophils # 0.1 10*3/uL (0.0-0.2); Basophils % 0.3 % (0.0-0.8); Hematocrit 41.8 VOL% (35.7-47.0); Hemoglobin 14.6 GM/DL (12.0-16.0); Immature Granulocytes % 1.7 %; Lymphocytes # 0.7 10*3/uL (1.4-4.0); Mean Corpuscular HGB Conc 34.9 GM/DL (32-36); Mean Corpuscular Volume 83.1 FL (87-102); Mean Platelet Volume 10.9 FL (9.6-12.0); Monocytes % 9.1 % (1.7-12.7); Neutrophils % 84.9 % (38.7-73.9); Platelet Count 394 T/CUMM (130-400); Red Blood Count 5.03 MC/CUMM (3.8-5.5); White Blood Count 17.4 T/CUMM (4-12)
[2020-05-29 06:18] LABS: Calcium 9.2 MG/DL (8.5-10.1); Osmolality,Calculated 265.4 MOS/KG (273-304)
[2020-05-29 06:30] LABS: Lymphocytes 2 % (20-55); Platelet Estimate Adequate; Segmented Neutrophils 92 % (50-85); Total Cells Counted 100
[2020-05-29] MEDS: MENTHOL/ZINC OXIDE OINT 71 GM JAR TOP SCH ×2 (09:12→22:17)
[2020-05-29] MEDS: DESITIN 4OZ/NYSTATIN 15 GRAM MIXTURE PASTE TOP SCH ×2 (09:12→22:19)
[2020-05-29] MEDS: INSULIN LISPRO 100 UNIT/ML SUBCUT SCH ×4 (09:12→22:17)
[2020-05-29] MEDS: CHOLESTYRAMINE 4 GM PACK PO SCH ×2 (09:13→22:19)
[2020-05-29] MEDS: CETIRIZINE 10 MG TABLET PO SCH (09:14)
[2020-05-29] MEDS: CHOLECALCIFEROL 1,000 UNIT TABLET PO SCH (09:14)
[2020-05-29] MEDS: ASCORBIC ACID 500 MG TABLET PO SCH (09:14)
[2020-05-29] MEDS: METOPROLOL SUCCINATE XL 50 MG TABLET PO SCH (09:14)
[2020-05-29] MEDS: ZINC SULFATE 220 MG CAPSULE PO SCH (09:14)
[2020-05-29] MEDS: ESCITALOPRAM 10 MG TABLET PO SCH (09:14)
[2020-05-29] MEDS: FAMOTIDINE 20 MG TABLET PO SCH ×2 (09:14→22:19)
[2020-05-29] MEDS: MULTIVITAMIN (CENTRUM) TABLET PO SCH (09:14)
[2020-05-29] MEDS: LEVOFLOXACIN 500 MG TABLET PO SCH (10:45)
[2020-05-29] MEDS: methylPREDNISolone SOD SUC 40 MG/1 ML VIAL IV SCH (12:49)
[2020-05-29] MEDS: BENZTROPINE 1 MG TABLET PO SCH (22:17)
[2020-05-29] MEDS: ENOXAPARIN 40 MG/0.4 ML SYRINGE SUBCUT SCH (22:19)
[2020-05-29] MEDS: ATORVASTATIN 10 MG TABLET PO SCH (22:19)
[2020-05-30] MEDS: ALBUTEROL INHALER 18 GM INH SCH ×4 (02:26→20:00)
[2020-05-30] MEDS: methylPREDNISolone SOD SUC 40 MG/1 ML VIAL IV SCH ×2 (02:26→13:33)
[2020-05-30 05:16] LABS: Blood Urea Nitrogen 18 MG/DL (7-18); Calcium 8.9 MG/DL (8.5-10.1); Estimated Glom Filtration Rate 98 ML/MIN; Glucose 225 MG/DL (74-106); Osmolality,Calculated 255.8 MOS/KG (273-304)
[2020-05-30 05:25] LABS: Basophils % 0.2 % (0.0-0.8); Eosinophils % 0.1 % (0.00-10.9); Hematocrit 39.5 VOL% (35.7-47.0); Hemoglobin 13.9 GM/DL (12.0-16.0); Immature Granulocytes % 1.5 %; Immature Granulocytes Absolute 0.27 #; Lymphocytes # 0.9 10*3/uL (1.4-4.0); Lymphocytes % 5.1 % (21.3-54.2); Mean Corpuscular HGB Conc 35.2 GM/DL (32-36); Mean Corpuscular Volume 81.8 FL (87-102); Mean Platelet Volume 11.2 FL (9.6-12.0); Monocytes % 13.4 % (1.7-12.7); Neutrophils % 79.7 % (38.7-73.9); Platelet Count 396 T/CUMM (130-400); Red Blood Count 4.83 MC/CUMM (3.8-5.5); White Blood Count 17.5 T/CUMM (4-12)
[2020-05-30] MEDS: INSULIN LISPRO 100 UNIT/ML SUBCUT SCH ×4 (08:04→20:40)
[2020-05-30] MEDS: MENTHOL/ZINC OXIDE OINT 71 GM JAR TOP SCH ×2 (08:05→20:00)
[2020-05-30] MEDS: MULTIVITAMIN (CENTRUM) TABLET PO SCH (08:05)
[2020-05-30] MEDS: ESTRADIOL 0.1 MG PATCH (1X WK) TRANSDERM SCH (08:06)
[2020-05-30] MEDS: ESCITALOPRAM 10 MG TABLET PO SCH (08:06)
[2020-05-30] MEDS: LEVOFLOXACIN 500 MG TABLET PO SCH (08:06)
[2020-05-30] MEDS: CHOLESTYRAMINE 4 GM PACK PO SCH ×2 (08:07→20:00)
[2020-05-30] MEDS: METOPROLOL SUCCINATE XL 50 MG TABLET PO SCH (08:07)
[2020-05-30] MEDS: CETIRIZINE 10 MG TABLET PO SCH (08:07)
[2020-05-30] MEDS: DESITIN 4OZ/NYSTATIN 15 GRAM MIXTURE PASTE TOP SCH ×2 (08:07→20:00)
[2020-05-30] MEDS: ASCORBIC ACID 500 MG TABLET PO SCH (08:07)
[2020-05-30] MEDS: FAMOTIDINE 20 MG TABLET PO SCH ×2 (13:32→20:00)
[2020-05-30] MEDS: CHOLECALCIFEROL 1,000 UNIT TABLET PO SCH (17:04)
[2020-05-30] MEDS: ENOXAPARIN 40 MG/0.4 ML SYRINGE SUBCUT SCH (20:00)
[2020-05-30] MEDS: BENZTROPINE 1 MG TABLET PO SCH (20:00)
[2020-05-30] MEDS: ATORVASTATIN 10 MG TABLET PO SCH (20:00)
[2020-05-31] MEDS: methylPREDNISolone SOD SUC 40 MG/1 ML VIAL IV SCH ×2 (00:10→13:27)
[2020-05-31] MEDS: ALBUTEROL INHALER 18 GM INH SCH ×4 (00:10→20:10)
[2020-05-31 07:11] LABS: Basophils # 0.1 10*3/uL (0.0-0.2); Basophils % 0.8 % (0.0-0.8); Hematocrit 41.4 VOL% (35.7-47.0); Hemoglobin 14.3 GM/DL (12.0-16.0); Immature Granulocytes % 1.4 %; Lymphocytes # 0.8 10*3/uL (1.4-4.0); Lymphocytes % 5.5 % (21.3-54.2); Mean Corpuscular HGB Conc 34.5 GM/DL (32-36); Mean Platelet Volume 11.1 FL (9.6-12.0); Monocytes % 10.2 % (1.7-12.7); Neutrophils % 82.1 % (38.7-73.9); Platelet Count 335 T/CUMM (130-400); Red Blood Count 4.99 MC/CUMM (3.8-5.5); Red Cell Distribution Width 11.9 % (9.3-17.3); White Blood Count 13.9 T/CUMM (4-12)
[2020-05-31 07:28] LABS: Calcium 8.7 MG/DL (8.5-10.1); Osmolality,Calculated 261.4 MOS/KG (273-304)
[2020-05-31] MEDS: MULTIVITAMIN (CENTRUM) TABLET PO SCH (08:45)
[2020-05-31] MEDS: FAMOTIDINE 20 MG TABLET PO SCH ×2 (08:46→20:10)
[2020-05-31] MEDS: ZINC SULFATE 220 MG CAPSULE PO SCH (08:46)
[2020-05-31] MEDS: CHOLESTYRAMINE 4 GM PACK PO SCH ×2 (08:46→20:10)
[2020-05-31] MEDS: CHOLECALCIFEROL 1,000 UNIT TABLET PO SCH (08:46)
[2020-05-31] MEDS: CETIRIZINE 10 MG TABLET PO SCH (08:46)
[2020-05-31] MEDS: MENTHOL/ZINC OXIDE OINT 71 GM JAR TOP SCH ×2 (08:47→20:10)
[2020-05-31] MEDS: ESCITALOPRAM 10 MG TABLET PO SCH (08:47)
[2020-05-31] MEDS: METOPROLOL SUCCINATE XL 50 MG TABLET PO SCH (08:47)
[2020-05-31] MEDS: DESITIN 4OZ/NYSTATIN 15 GRAM MIXTURE PASTE TOP SCH ×2 (08:47→20:10)
[2020-05-31] MEDS: INSULIN LISPRO 100 UNIT/ML SUBCUT SCH ×4 (08:47→21:05)
[2020-05-31] MEDS: ASCORBIC ACID 500 MG TABLET PO SCH (08:47)
[2020-05-31] MEDS: BENZTROPINE 1 MG TABLET PO SCH (20:10)
[2020-05-31] MEDS: ENOXAPARIN 40 MG/0.4 ML SYRINGE SUBCUT SCH (20:10)
[2020-05-31] MEDS: ATORVASTATIN 10 MG TABLET PO SCH (20:10)
[2020-06-01] MEDS: methylPREDNISolone SOD SUC 40 MG/1 ML VIAL IV SCH ×3 (00:34→23:45)
[2020-06-01] MEDS: ALBUTEROL INHALER 18 GM INH SCH ×3 (00:34→13:30)
[2020-06-01 05:55] LABS: Basophils # 0.1 10*3/uL (0.0-0.2); Basophils % 0.5 % (0.0-0.8); Eosinophils % 0.1 % (0.00-10.9); Hematocrit 44.3 VOL% (35.7-47.0); Hemoglobin 15.5 GM/DL (12.0-16.0); Immature Granulocytes % 1.7 %; Immature Granulocytes Absolute 0.29 #; Lymphocytes # 1.9 10*3/uL (1.4-4.0); Lymphocytes % 11.3 % (21.3-54.2); Mean Corpuscular Volume 84.1 FL (87-102); Mean Platelet Volume 10.5 FL (9.6-12.0); Monocytes % 14.4 % (1.7-12.7); Platelet Count 322 T/CUMM (130-400); Red Blood Count 5.27 MC/CUMM (3.8-5.5); Red Cell Distribution Width 11.9 % (9.3-17.3); White Blood Count 17.1 T/CUMM (4-12)
[2020-06-01 06:11] LABS: Blood Urea Nitrogen 17 MG/DL (7-18); Calcium 8.8 MG/DL (8.5-10.1); Estimated Glom Filtration Rate 103 ML/MIN; Glucose 131 MG/DL (74-106); Osmolality,Calculated 256.4 MOS/KG (273-304)
[2020-06-01] MEDS: INSULIN LISPRO 100 UNIT/ML SUBCUT SCH ×4 (08:16→21:29)
[2020-06-01] MEDS: MULTIVITAMIN (CENTRUM) TABLET PO SCH (10:07)
[2020-06-01] MEDS: MENTHOL/ZINC OXIDE OINT 71 GM JAR TOP SCH ×2 (10:07→21:29)
[2020-06-01] MEDS: ASCORBIC ACID 500 MG TABLET PO SCH (10:08)
[2020-06-01] MEDS: CHOLESTYRAMINE 4 GM PACK PO SCH ×2 (10:08→21:27)
[2020-06-01] MEDS: CETIRIZINE 10 MG TABLET PO SCH (10:08)
[2020-06-01] MEDS: DESITIN 4OZ/NYSTATIN 15 GRAM MIXTURE PASTE TOP SCH ×2 (10:08→21:28)
[2020-06-01] MEDS: FAMOTIDINE 20 MG TABLET PO SCH ×2 (10:08→21:27)
[2020-06-01] MEDS: METOPROLOL SUCCINATE XL 50 MG TABLET PO SCH (10:08)
[2020-06-01] MEDS: CHOLECALCIFEROL 1,000 UNIT TABLET PO SCH (10:08)
[2020-06-01] MEDS: ESCITALOPRAM 10 MG TABLET PO SCH (10:08)
[2020-06-01] MEDS: ATORVASTATIN 10 MG TABLET PO SCH (21:27)
[2020-06-01] MEDS: ENOXAPARIN 40 MG/0.4 ML SYRINGE SUBCUT SCH (21:28)
[2020-06-01] MEDS: BENZTROPINE 1 MG TABLET PO SCH (21:29)
[2020-06-02] MEDS: INSULIN LISPRO 100 UNIT/ML SUBCUT SCH ×4 (08:27→21:41)
[2020-06-02] MEDS: CHOLESTYRAMINE 4 GM PACK PO SCH ×2 (09:08→21:40)
[2020-06-02] MEDS: MULTIVITAMIN (CENTRUM) TABLET PO SCH (09:10)
[2020-06-02] MEDS: ESCITALOPRAM 10 MG TABLET PO SCH (09:10)
[2020-06-02] MEDS: CHOLECALCIFEROL 1,000 UNIT TABLET PO SCH (09:11)
[2020-06-02] MEDS: FAMOTIDINE 20 MG TABLET PO SCH ×2 (09:11→21:40)
[2020-06-02] MEDS: METOPROLOL SUCCINATE XL 50 MG TABLET PO SCH (09:12)
[2020-06-02] MEDS: MENTHOL/ZINC OXIDE OINT 71 GM JAR TOP SCH ×2 (09:12→21:40)
[2020-06-02] MEDS: ALBUTEROL INHALER 18 GM INH SCH ×4 (09:13→21:41)
[2020-06-02] MEDS: CETIRIZINE 10 MG TABLET PO SCH (09:14)
[2020-06-02] MEDS: DESITIN 4OZ/NYSTATIN 15 GRAM MIXTURE PASTE TOP SCH ×2 (12:00→21:40)
[2020-06-02] MEDS: ENOXAPARIN 40 MG/0.4 ML SYRINGE SUBCUT SCH (21:40)
[2020-06-02] MEDS: BENZTROPINE 1 MG TABLET PO SCH (21:40)
[2020-06-02] MEDS: ATORVASTATIN 10 MG TABLET PO SCH (21:40)
[2020-06-03] MEDS: ALBUTEROL INHALER 18 GM INH SCH ×4 (02:07→20:05)
[2020-06-03] MEDS: INSULIN LISPRO 100 UNIT/ML SUBCUT SCH ×4 (09:03→20:56)
[2020-06-03] MEDS: ESCITALOPRAM 10 MG TABLET PO SCH (09:04)
[2020-06-03] MEDS: MULTIVITAMIN (CENTRUM) TABLET PO SCH (09:04)
[2020-06-03] MEDS: CHOLESTYRAMINE 4 GM PACK PO SCH ×2 (09:04→20:55)
[2020-06-03] MEDS: MENTHOL/ZINC OXIDE OINT 71 GM JAR TOP SCH ×2 (09:04→21:01)
[2020-06-03] MEDS: CHOLECALCIFEROL 1,000 UNIT TABLET PO SCH (09:04)
[2020-06-03] MEDS: FAMOTIDINE 20 MG TABLET PO SCH ×2 (09:04→20:55)
[2020-06-03] MEDS: DESITIN 4OZ/NYSTATIN 15 GRAM MIXTURE PASTE TOP SCH ×2 (09:04→20:56)
[2020-06-03] MEDS: CETIRIZINE 10 MG TABLET PO SCH (09:04)
[2020-06-03] MEDS: METOPROLOL SUCCINATE XL 50 MG TABLET PO SCH (09:04)
[2020-06-03] MEDS: ACETAMINOPHEN 325 MG TABLET PO PRN (11:28)
[2020-06-03] MEDS: ONDANSETRON 4 MG/2 ML VIAL IV PRN (14:09)
[2020-06-03] MEDS: ENOXAPARIN 40 MG/0.4 ML SYRINGE SUBCUT SCH (20:55)
[2020-06-03] MEDS: BENZTROPINE 1 MG TABLET PO SCH (20:55)
[2020-06-03] MEDS: ATORVASTATIN 10 MG TABLET PO SCH (20:55)
[2020-06-04] MEDS: ALBUTEROL INHALER 18 GM INH SCH ×4 (00:45→20:01)
[2020-06-04] MEDS: INSULIN LISPRO 100 UNIT/ML SUBCUT SCH ×4 (08:22→20:59)
[2020-06-04] MEDS: FAMOTIDINE 20 MG TABLET PO SCH ×2 (08:23→20:58)
[2020-06-04] MEDS: CHOLECALCIFEROL 1,000 UNIT TABLET PO SCH (08:23)
[2020-06-04] MEDS: MULTIVITAMIN (CENTRUM) TABLET PO SCH (08:23)
[2020-06-04] MEDS: CHOLESTYRAMINE 4 GM PACK PO SCH ×2 (08:23→20:58)
[2020-06-04] MEDS: METOPROLOL SUCCINATE XL 50 MG TABLET PO SCH (08:24)
[2020-06-04] MEDS: DESITIN 4OZ/NYSTATIN 15 GRAM MIXTURE PASTE TOP SCH ×2 (08:24→20:58)
[2020-06-04] MEDS: ESCITALOPRAM 10 MG TABLET PO SCH (08:24)
[2020-06-04] MEDS: MENTHOL/ZINC OXIDE OINT 71 GM JAR TOP SCH ×2 (08:24→20:59)
[2020-06-04] MEDS: CETIRIZINE 10 MG TABLET PO SCH (08:24)
[2020-06-04] MEDS: ATORVASTATIN 10 MG TABLET PO SCH (20:58)
[2020-06-04] MEDS: BENZTROPINE 1 MG TABLET PO SCH (20:58)
[2020-06-04] MEDS: ENOXAPARIN 40 MG/0.4 ML SYRINGE SUBCUT SCH (20:58)
[2020-06-05] MEDS: ALBUTEROL INHALER 18 GM INH SCH ×4 (00:32→18:11)
[2020-06-05] MEDS: METOPROLOL SUCCINATE XL 50 MG TABLET PO SCH (08:32)
[2020-06-05] MEDS: INSULIN LISPRO 100 UNIT/ML SUBCUT SCH ×4 (08:32→20:42)
[2020-06-05] MEDS: CETIRIZINE 10 MG TABLET PO SCH (08:32)
[2020-06-05] MEDS: FAMOTIDINE 20 MG TABLET PO SCH ×2 (08:32→20:43)
[2020-06-05] MEDS: MULTIVITAMIN (CENTRUM) TABLET PO SCH (08:32)
[2020-06-05] MEDS: ESCITALOPRAM 10 MG TABLET PO SCH (08:32)
[2020-06-05] MEDS: CHOLESTYRAMINE 4 GM PACK PO SCH ×2 (08:33→20:43)
[2020-06-05] MEDS: MENTHOL/ZINC OXIDE OINT 71 GM JAR TOP SCH ×2 (08:36→20:44)
[2020-06-05] MEDS: DESITIN 4OZ/NYSTATIN 15 GRAM MIXTURE PASTE TOP SCH ×2 (08:36→20:43)
[2020-06-05] MEDS: POLYETHYLENE GLYCOL POWDER 17 GM PACK PO SCH ×2 (08:52→20:43)
[2020-06-05] MEDS: CHOLECALCIFEROL 1,000 UNIT TABLET PO SCH (08:52)
[2020-06-05] MEDS: BENZTROPINE 1 MG TABLET PO SCH (20:43)
[2020-06-05] MEDS: ENOXAPARIN 40 MG/0.4 ML SYRINGE SUBCUT SCH (20:43)
[2020-06-05] MEDS: ATORVASTATIN 10 MG TABLET PO SCH (20:43)
[2020-06-06] MEDS: ALBUTEROL INHALER 18 GM INH SCH ×4 (02:04→19:50)
[2020-06-06 05:25] LABS: Basophils % 0.3 % (0.0-0.8); Eosinophils # 0.3 10*3/uL (0.0-0.87); Eosinophils % 1.7 % (0.00-10.9); Hematocrit 37.1 VOL% (35.7-47.0); Hemoglobin 12.6 GM/DL (12.0-16.0); Immature Granulocytes % 2.6 %; Immature Granulocytes Absolute 0.41 #; Lymphocytes # 1.5 10*3/uL (1.4-4.0); Lymphocytes % 9.6 % (21.3-54.2); Mean Corpuscular Volume 85.7 FL (87-102); Mean Platelet Volume 10.2 FL (9.6-12.0); Monocytes % 10.4 % (1.7-12.7); Neutrophils % 75.4 % (38.7-73.9); Platelet Count 229 T/CUMM (130-400); Red Blood Count 4.33 MC/CUMM (3.8-5.5); Red Cell Distribution Width 12.4 % (9.3-17.3); White Blood Count 15.5 T/CUMM (4-12)
[2020-06-06 05:45] LABS: Calcium 8.4 MG/DL (8.5-10.1); Osmolality,Calculated 258.9 MOS/KG (273-304)
[2020-06-06] MEDS: ESCITALOPRAM 10 MG TABLET PO SCH (08:23)
[2020-06-06] MEDS: FAMOTIDINE 20 MG TABLET PO SCH ×2 (08:23→21:24)
[2020-06-06] MEDS: POLYETHYLENE GLYCOL POWDER 17 GM PACK PO SCH ×2 (08:23→21:25)
[2020-06-06] MEDS: CHOLECALCIFEROL 1,000 UNIT TABLET PO SCH (08:23)
[2020-06-06] MEDS: CHOLESTYRAMINE 4 GM PACK PO SCH ×2 (08:23→21:25)
[2020-06-06] MEDS: CETIRIZINE 10 MG TABLET PO SCH (08:23)
[2020-06-06] MEDS: MULTIVITAMIN (CENTRUM) TABLET PO SCH (08:23)
[2020-06-06] MEDS: METOPROLOL SUCCINATE XL 50 MG TABLET PO SCH (08:23)
[2020-06-06] MEDS: INSULIN LISPRO 100 UNIT/ML SUBCUT SCH ×4 (08:23→21:25)
[2020-06-06] MEDS: ESTRADIOL 0.1 MG PATCH (1X WK) TRANSDERM SCH (08:24)
[2020-06-06] MEDS: DESITIN 4OZ/NYSTATIN 15 GRAM MIXTURE PASTE TOP SCH ×2 (08:24→21:25)
[2020-06-06] MEDS: MENTHOL/ZINC OXIDE OINT 71 GM JAR TOP SCH ×2 (08:24→21:25)
[2020-06-06] MEDS: BENZTROPINE 1 MG TABLET PO SCH (21:24)
[2020-06-06] MEDS: ATORVASTATIN 10 MG TABLET PO SCH (21:24)
[2020-06-06] MEDS: ENOXAPARIN 40 MG/0.4 ML SYRINGE SUBCUT SCH (21:24)
[2020-06-07] MEDS: ALBUTEROL INHALER 18 GM INH SCH ×4 (01:30→18:33)
[2020-06-07] MEDS: MULTIVITAMIN (CENTRUM) TABLET PO SCH (09:13)
[2020-06-07] MEDS: METOPROLOL SUCCINATE XL 50 MG TABLET PO SCH (09:13)
[2020-06-07] MEDS: CHOLECALCIFEROL 1,000 UNIT TABLET PO SCH (09:13)
[2020-06-07] MEDS: CETIRIZINE 10 MG TABLET PO SCH (09:13)
[2020-06-07] MEDS: CHOLESTYRAMINE 4 GM PACK PO SCH ×2 (09:14→21:03)
[2020-06-07] MEDS: FAMOTIDINE 20 MG TABLET PO SCH ×2 (09:14→21:03)
[2020-06-07] MEDS: DESITIN 4OZ/NYSTATIN 15 GRAM MIXTURE PASTE TOP SCH ×2 (09:14→21:03)
[2020-06-07] MEDS: MENTHOL/ZINC OXIDE OINT 71 GM JAR TOP SCH ×2 (09:14→21:04)
[2020-06-07] MEDS: INSULIN LISPRO 100 UNIT/ML SUBCUT SCH ×4 (09:14→21:01)
[2020-06-07] MEDS: ESCITALOPRAM 10 MG TABLET PO SCH (09:14)
[2020-06-07] MEDS: POLYETHYLENE GLYCOL POWDER 17 GM PACK PO SCH ×2 (09:14→21:02)
[2020-06-07] MEDS ORDERED: POTASSIUM CHLORIDE 20 MEQ TABLET PO PRN (11:35)
[2020-06-07] MEDS: ACETAMINOPHEN 325 MG TABLET PO PRN (16:38)
[2020-06-07] MEDS: BENZTROPINE 1 MG TABLET PO SCH (21:03)
[2020-06-07] MEDS: ENOXAPARIN 40 MG/0.4 ML SYRINGE SUBCUT SCH (21:03)
[2020-06-07] MEDS: ATORVASTATIN 10 MG TABLET PO SCH (21:03)
[2020-06-08] MEDS: ALBUTEROL INHALER 18 GM INH SCH ×4 (01:00→18:25)
[2020-06-08 05:49] LABS: Basophils % 0.3 % (0.0-0.8); Eosinophils # 0.3 10*3/uL (0.0-0.87); Eosinophils % 2.2 % (0.00-10.9); Hematocrit 39.6 VOL% (35.7-47.0); Hemoglobin 12.9 GM/DL (12.0-16.0); Immature Granulocytes % 1.5 %; Immature Granulocytes Absolute 0.21 #; Lymphocytes # 1.4 10*3/uL (1.4-4.0); Lymphocytes % 9.5 % (21.3-54.2); Mean Corpuscular HGB Conc 32.6 GM/DL (32-36); Mean Platelet Volume 10.2 FL (9.6-12.0); Monocytes % 9.6 % (1.7-12.7); Neutrophils % 76.9 % (38.7-73.9); Platelet Count 230 T/CUMM (130-400); Red Cell Distribution Width 12.8 % (9.3-17.3); White Blood Count 14.3 T/CUMM (4-12)
[2020-06-08 06:30] LABS: Calcium 8.7 MG/DL (8.5-10.1); Osmolality,Calculated 261.7 MOS/KG (273-304)
[2020-06-08] MEDS: CHOLESTYRAMINE 4 GM PACK PO SCH ×2 (08:40→21:06)
[2020-06-08] MEDS: POLYETHYLENE GLYCOL POWDER 17 GM PACK PO SCH ×2 (08:40→21:06)
[2020-06-08] MEDS: INSULIN LISPRO 100 UNIT/ML SUBCUT SCH ×4 (08:40→21:07)
[2020-06-08] MEDS: MULTIVITAMIN (CENTRUM) TABLET PO SCH (08:42)
[2020-06-08] MEDS: DESITIN 4OZ/NYSTATIN 15 GRAM MIXTURE PASTE TOP SCH ×2 (08:42→21:08)
[2020-06-08] MEDS: CHOLECALCIFEROL 1,000 UNIT TABLET PO SCH (08:42)
[2020-06-08] MEDS: FAMOTIDINE 20 MG TABLET PO SCH ×2 (08:42→21:06)
[2020-06-08] MEDS: MENTHOL/ZINC OXIDE OINT 71 GM JAR TOP SCH ×2 (08:42→21:08)
[2020-06-08] MEDS: METOPROLOL SUCCINATE XL 50 MG TABLET PO SCH (08:42)
[2020-06-08] MEDS: ESCITALOPRAM 10 MG TABLET PO SCH (08:42)
[2020-06-08] MEDS: CETIRIZINE 10 MG TABLET PO SCH (08:42)
[2020-06-08] MEDS: ATORVASTATIN 10 MG TABLET PO SCH (21:06)
[2020-06-08] MEDS: BENZTROPINE 1 MG TABLET PO SCH (21:06)
[2020-06-08] MEDS: ENOXAPARIN 40 MG/0.4 ML SYRINGE SUBCUT SCH (21:06)
[2020-06-09] MEDS: ALBUTEROL 2.5 MG/3 ML NEB RESP TX SCH ×4 (01:52→19:52)
[2020-06-09 05:43] LABS: Basophils % 0.3 % (0.0-0.8); Eosinophils # 0.3 10*3/uL (0.0-0.87); Eosinophils % 2.8 % (0.00-10.9); Hematocrit 35.8 VOL% (35.7-47.0); Hemoglobin 12.2 GM/DL (12.0-16.0); Immature Granulocytes % 1.2 %; Immature Granulocytes Absolute 0.14 #; Lymphocytes # 1.5 10*3/uL (1.4-4.0); Lymphocytes % 12.3 % (21.3-54.2); Mean Corpuscular HGB Conc 34.1 GM/DL (32-36); Mean Corpuscular Volume 85.4 FL (87-102); Mean Platelet Volume 10.5 FL (9.6-12.0); Monocytes % 10.1 % (1.7-12.7); Neutrophils % 73.3 % (38.7-73.9); Platelet Count 222 T/CUMM (130-400); Red Blood Count 4.19 MC/CUMM (3.8-5.5); Red Cell Distribution Width 12.8 % (9.3-17.3)
[2020-06-09 05:59] LABS: Calcium 8.8 MG/DL (8.5-10.1); Osmolality,Calculated 259.8 MOS/KG (273-304)
[2020-06-09] MEDS: CHOLESTYRAMINE 4 GM PACK PO SCH ×2 (08:38→22:10)
[2020-06-09] MEDS: ESCITALOPRAM 10 MG TABLET PO SCH (08:39)
[2020-06-09] MEDS: INSULIN LISPRO 100 UNIT/ML SUBCUT SCH ×4 (08:39→22:09)
[2020-06-09] MEDS: METOPROLOL SUCCINATE XL 50 MG TABLET PO SCH (08:39)
[2020-06-09] MEDS: CETIRIZINE 10 MG TABLET PO SCH (08:39)
[2020-06-09] MEDS: FAMOTIDINE 20 MG TABLET PO SCH ×2 (08:39→22:11)
[2020-06-09] MEDS: CHOLECALCIFEROL 1,000 UNIT TABLET PO SCH (08:39)
[2020-06-09] MEDS: DESITIN 4OZ/NYSTATIN 15 GRAM MIXTURE PASTE TOP SCH ×2 (08:40→22:12)
[2020-06-09] MEDS: MULTIVITAMIN (CENTRUM) TABLET PO SCH (08:40)
[2020-06-09] MEDS: MENTHOL/ZINC OXIDE OINT 71 GM JAR TOP SCH ×2 (08:40→22:11)
[2020-06-09] MEDS: POLYETHYLENE GLYCOL POWDER 17 GM PACK PO SCH ×2 (08:40→22:11)
[2020-06-09] MEDS: ENOXAPARIN 40 MG/0.4 ML SYRINGE SUBCUT SCH (22:10)
[2020-06-09] MEDS: ATORVASTATIN 10 MG TABLET PO SCH (22:11)
[2020-06-09] MEDS: BENZTROPINE 1 MG TABLET PO SCH (22:11)
[2020-06-09] MEDS: ACETAMINOPHEN 325 MG TABLET PO PRN (22:20)
[2020-06-10] MEDS: ALBUTEROL 2.5 MG/3 ML NEB RESP TX SCH ×2 (00:53→07:12)
[2020-06-10 08:19] VITALS: BP 129/64
[2020-06-10] MEDS ORDERED: SODIUM CHLORIDE 0.9% 500 ML IV ONE (09:00)
[2020-06-10] MEDS: CETIRIZINE 10 MG TABLET PO SCH (09:19)
[2020-06-10] MEDS: METOPROLOL SUCCINATE XL 50 MG TABLET PO SCH (09:19)
[2020-06-10] MEDS: INSULIN LISPRO 100 UNIT/ML SUBCUT SCH (09:19)
[2020-06-10] MEDS: CHOLESTYRAMINE 4 GM PACK PO SCH (09:19)
[2020-06-10] MEDS: POLYETHYLENE GLYCOL POWDER 17 GM PACK PO SCH (09:19)
[2020-06-10] MEDS: FAMOTIDINE 20 MG TABLET PO SCH (09:19)
[2020-06-10] MEDS: DESITIN 4OZ/NYSTATIN 15 GRAM MIXTURE PASTE TOP SCH (09:20)
[2020-06-10] MEDS: MENTHOL/ZINC OXIDE OINT 71 GM JAR TOP SCH (09:21)
[2020-06-10] MEDS: MULTIVITAMIN (CENTRUM) TABLET PO SCH (09:23)
[2020-06-10] MEDS: ESCITALOPRAM 10 MG TABLET PO SCH (09:23)
[2020-06-10] MEDS: CHOLECALCIFEROL 1,000 UNIT TABLET PO SCH (10:05)
== END 2020-06-10 11:50 | DRG 871 ==
LOC: EDBD → EDUNIT# → N.ED 17:14 → SUATTDRO 20:24 → N.EDINP 20:24 → N.2E 21:55 → N.5E 06-01 15:17
PROVIDERS: ADMIT Internal Medicine; ATTEND Internal Medicine